=== PATIENT | female | born 1940 | race Caucasian/White ===

== ENCOUNTER 2019-02-24 18:30 | Inpatient (IN) | payer MEDICARE, BC ==
[2019-02-24] MEDS ORDERED: SODIUM CHLORIDE 0.9% 1,000 ML IV STA (19:15)
[2019-02-24] MEDS ORDERED: METOCLOPRAMIDE 5 MG/ML 2 ML VIAL IVP STA (19:15)
[2019-02-24] MEDS ORDERED: HYDROmorphone 0.5 MG/0.5 ML SYRINGE IVP STA (19:15)
[2019-02-24] MEDS ORDERED: SODIUM CHLORIDE 0.9% 500 ML 500 ML IV STA ×2 (19:15→23:32)
--- NOTE | 2019-02-24 20:25 | ED ---
Abdominal Pain HPI - General Source: patient, EMS Mode of arrival: EMS <Nash Zambrano - Last Filed: 02/24/19 20:22> <Willy Martin - Last Filed: 02/25/19 04:49> - General Chief Complaint: Abdominal Pain Stated Complaint: Abd.pain Time Seen by Provider: 02/24/19 19:09 - History of Present Illness Initial Comments: This 78-year-old white female presents with a complaint of some abdominal pain. This is primarily in the midepigastric region. It started at about 1:00. She ate some pizza at approximately 12:30 just one half our prior to onset of the abdominal pain. She then had some nausea and vomiting. She denies any fevers, chills, or diarrhea. The pain seems to radiate posteriorly. She apparently has had somewhat similar but less severe symptoms for the past several weeks. She has been told that she has a hiatal hernia and some reflux. She has had her gallbladder checked out in the past the ultrasound did not show any gallstones. She is worried about her gallbladder. She denies any other complaints or modifying factors. It does seem to be related to food when it does occur. (Nash Zambrano) - Related Data Home Medications Medication Instructions Recorded Confirmed Losartan/Hydrochlorothiazide 1 tab PO DAILY 02/24/19 02/24/19 [Hyzaar 100-25 Tablet] Omeprazole 20 mg PO DAILY 02/24/19 02/24/19 Allergies Allergy/AdvReac Type Severity Reaction Status Date / Time No Known Allergies Allergy Unverified 02/24/19 19:12 Review of Systems ROS Other: All systems not noted in ROS Statement are negative. <Nash Zambrano - Last Filed: 02/24/19 20:22> ROS Other: All systems not noted in ROS Statement are negative. <Willy Martin - Last Filed: 02/25/19 04:49> ROS Statement: Those systems with pertinent positive or pertinent negative responses have been documented in the HPI. Past Medical History - Past Family History Mother Family Medical History: CVA/TIA Additional Family Medical History / Comment(s): Macular Degeneration Father Family Medical History: Unable to Obtain <Willy Martin - Last Filed: 02/25/19 04:49> General Exam <Nash Zambrano - Last Filed: 02/24/19 20:22> - General Exam Comments Initial Comments: GENERAL: The patient is well nourished and well hydrated. VITAL SIGNS: Heart rate, blood pressure, respiratory rate reviewed as recorded in nurse's notes. EYES: Pupils are round and reactive. Extraocular movements are intact. No conjunctival / lid redness or swelling. ENT: No external evidence of injury, swelling, or ecchymosis. Airway is patent. Throat is clear. NECK: Nontender. No swelling or evidence of injury. No subcutaneous emphysema. Trachea is midline. No thyroid mass. HEART: Regular rate and rhythm. Good peripheral pulses. LUNGS/CHEST: Breath sounds clear and equal bilaterally. No rales, rhonchi, or wheezes. No ecchymosis, subcutaneous emphysema, or tenderness. ABDOMEN: Tenderness is present in the midepigastric region. The abdomen overall is soft. No palpable masses or organomegaly. No peritoneal signs. No abdominal wall swelling or ecchymosis. EXTREMITIES: No extremity tenderness. Normal muscle tone and function. No thoracolumbar tenderness. NEUROLOGIC: Sensation is grossly intact. Cranial nerve exam reveals face is symmetrical, tongue is midline, speech is clear. SKIN: No abrasions or ecchymosis is noted. No induration or masses noted. PSYCHIATRIC: Alert and oriented. Appropriate behavior and judgment. (Nash Zambrano) Course <Willy Martin - Last Filed: 02/25/19 04:49> Vital Signs 02/24/19 02/24/19 02/24/19 18:54 22:38 23:32 Temperature 98.9 F 98.3 F Pulse Rate 103 H 130 H 124 H Respiratory 18 18 18 Rate Blood Pressure 150/79 112/58 94/67 O2 Sat by Pulse 90 L 86 L 98 Oximetry - Reevaluation(s) Reevaluation #1: 02/25/19 00:27 Patient became tachycardic while in the emergency department. The lactic acid is checked and patient given sepsis bolus. Patient receiving IV antibiotics. To have repeat lactic acid. (Willy Martin) Medical Decision Making <Nash Zambrano - Last Filed: 02/24/19 20:22> - Lab Data Result diagrams: 02/24/19 20:15 02/24/19 20:15 - EKG Data -: EKG Interpreted by Mo EKG shows normal: sinus rhythm, axis (Normal), intervals (Normal), QRS complexes (Normal), ST-T waves (Normal) Rate: tachycardia (Rate 124 bpm) <Willy Martin - Last Filed: 02/25/19 04:49> - Medical Decision Making The patient was seen and examined. All diagnostics are reviewed. An IV is established and she does receive 0.5 mg of Dilaudid for pain and 10 mg of Reglan for nausea. She did present via ambulance and previously received some Zofran without relief. The EKG shows a normal sinus rhythm at a rate of 84. There is no acute ST-T wave changes identified. The CT interval is 172, QRS duration is 100, and the QTC intervals 451. (Nash Zambrano) Receive this patient has a sign out pending the results of her ultrasound. This does show acute cholecystitis. Case is discussed with Dr. Hernandez who is covering call for surgery tonight. Patient be admitted and kept nothing by mouth. Patient's labs are concerning for possible early sepsis. Patient is given fluid bolus based on ideal body weight. (Willy Martin) - Lab Data Lab Results 02/24/19 02/24/19 02/24/19 Range/Units 20:15 20:15 22:39 WBC 15.0 H (3.8-10.6) k/uL RBC 4.84 (3.80-5.40) m/uL Hgb 14.3 (11.4-16.0) gm/dL Hct 44.1 (34.0-46.0) % MCV 91.2 (80.0-100.0) fL MCH 29.5 (25.0-35.0) pg MCHC 32.4 (31.0-37.0) g/dL RDW 13.9 (11.5-15.5) % Plt Count 159 (150-450) k/uL Neutrophils % 96 % Lymphocytes % 2 % Monocytes % 1 % Eosinophils % 0 % Basophils % 0 % Neutrophils # 14.4 H (1.3-7.7) k/uL Lymphocytes # 0.3 L (1.0-4.8) k/uL Monocytes # 0.2 (0-1.0) k/uL Eosinophils # 0.0 (0-0.7) k/uL Basophils # 0.0 (0-0.2) k/uL PT 9.9 (9.0-12.0) sec INR 0.9 (<1.2) APTT 18.2 L (22.0-30.0) sec Sodium 138 (137-145) mmol/L Potassium 3.5 (3.5-5.1) mmol/L Chloride 99 (98-107) mmol/L Carbon Dioxide 29 (22-30) mmol/L Anion Gap 10 mmol/L BUN 14 (7-17) mg/dL Creatinine 0.67 (0.52-1.04) mg/dL Est GFR (CKD-EPI)AfAm >90 (>60 ml/min/1.73 sqM) Est GFR (CKD-EPI)NonAf 86 (>60 ml/min/1.73 sqM) Glucose 186 H (74-99) mg/dL Calcium 9.3 (8.4-10.2) mg/dL Total Bilirubin 2.2 H (0.2-1.3) mg/dL AST 399 H (14-36) U/L ALT 252 H (9-52) U/L Alkaline Phosphatase 97 (38-126) U/L Total Protein 6.7 (6.3-8.2) g/dL Albumin 4.4 (3.5-5.0) g/dL Disposition <Nash Zambrano - Last Filed: 02/24/19 20:22> Is patient prescribed a controlled substance at d/c from ED?: No <Willy Martin - Last Filed: 02/25/19 04:49> Clinical Impression: Abdominal pain, Nausea and vomiting, Cholecystitis Disposition: ADMITTED IP TO THIS HOSP Condition: Fair
--- NOTE | 2019-02-24 21:26 | XR ---
EXAMINATION TYPE: XR abdomen acute w cxr total 4 views DATE OF EXAM: 02/24/2019 COMPARISON: NONE HISTORY: Pain and vomiting TECHNIQUE: 2 upright and 2 supine views FINDINGS: Mildly enlarged cardiac silhouette noted. No acute pulmonary or pleural process. 1 cm calcified granu wanda noted in the left midlung zone. There is no evidence for pneumoperitoneum. The bowel gas pattern is unremarkable as there is air thro ughout nondilated small and large bowel. No sizeable air fluid levels. No acute skeletal or soft tissue findings. IMPRESSION: No acute radiographic process.
--- NOTE | 2019-02-24 21:51 | US ---
EXAMINATION TYPE: US abdomen limited DATE OF EXAM: 02/24/2019 COMPARISON: US 2012 CLINICAL HISTORY: Pain. Abdominal pain x 8 hours. Nausea and vomiting. HTN. Hyperlipidemia. EXAM MEASUREMENTS: Liver Length: 15.3 cm Gallbladder Wall: 0.30 cm CBD: 0.52 cm Right Kidney: 10.7 x 4.8 x 5.0 cm *Limited exam due to large body habitus, gas, and patient's limited ability to be positioned on her s kaya. Pancreas: obscured by gas Liver: Hyperechogenic diffusely, likely steatosis, and limited for focal lesions. Gallbladder: Multiple tiny intraluminal dependent echogenic foci with posterior shadowing seen withi n the gallbladder. The gallbladder is distended and measures 9.6 cm in length. Evidence for sonographic Goins's sign: no CBD: appears wnl Right Kidney: No hydronephrosis or masses seen. IMPRESSION: Sonographic findings positive for cholelithiasis, gallbladder distention, and borderline thickened ga llbladder wall thickness.
[2019-02-24 22:32] LABS: ALT 252 U/L (9-52); AST 399 U/L (14-36); African American GFR (CKD) >90 (>60 ml/min/1.73 sqM); Albumin 4.4 g/dL (3.5-5.0); Alkaline Phosphatase 97 U/L (38-126); Anion Gap 10 mmol/L; Basophils % (A) 0 %; Blood Urea Nitrogen 14 mg/dL (7-17); Calcium 9.3 mg/dL (8.4-10.2); Carbon Dioxide 29 mmol/L (22-30); Chloride 99 mmol/L (98-107); Eosinophils % (A) 0 %; Glucose 186 mg/dL (74-99); HCT 44.1 % (34.0-46.0); HGB 14.3 gm/dL (11.4-16.0); Lymphocytes # (A) 0.3 k/uL (1.0-4.8); Lymphocytes % (A) 2 %; MCH 29.5 pg (25.0-35.0); MCHC 32.4 g/dL (31.0-37.0); MCV 91.2 fL (80.0-100.0); Mean Platelet Volume 9.5; Monocytes # (A) 0.2 k/uL (0-1.0); Monocytes % (A) 1 %; Neutrophils # (A) 14.4 k/uL (1.3-7.7); Neutrophils % (A) 96 %; Platelet Count 159 k/uL (150-450); Potassium 3.5 mmol/L (3.5-5.1); RBC 4.84 m/uL (3.80-5.40); RDW 13.9 % (11.5-15.5); Sodium 138 mmol/L (137-145); Total Bilirubin 2.2 mg/dL (0.2-1.3); Total Protein 6.7 g/dL (6.3-8.2)
[2019-02-24 23:10] LABS: INR 0.9 (<1.2); Prothrombin Time 9.9 sec (9.0-12.0)
[2019-02-24 23:14] LABS: Partial Thromboplastin Time 18.2 sec (22.0-30.0)
[2019-02-24] MEDS ORDERED: HYDROmorphone 1 MG/ML 1 ML SYRINGE IVP PRN (23:17)
[2019-02-24] MEDS ORDERED: NALOXONE 0.4 MG/ML 1 ML VIAL IV PRN (23:17)
[2019-02-24] MEDS ORDERED: ONDANSETRON 4 MG/2 ML VIAL IVP PRN (23:17)
[2019-02-24] MEDS ORDERED: PIPERACILLIN-TAZOBACTAM 3.375 GM in SODIUM CHLORIDE 0.9% 100 ML IVPB STA (23:44)
[2019-02-25 00:01] LABS: Glucose,Whole Blood 242 mg/dL (75-99)
[2019-02-25] MEDS ORDERED: SODIUM CHLORIDE 0.9% 1,000 ML IV ONE (00:27)
[2019-02-25] MEDS: SODIUM CHLORIDE 0.9% 1,000 ML IV SCH ×4 (02:43→23:29)
[2019-02-25 07:04] LABS: Glucose,Whole Blood 203 mg/dL (75-99)
[2019-02-25] MEDS: INSULIN ASPART (NovoLOG) 100 UNIT/ML VIAL SQ SCH ×4 (07:53→20:40)
[2019-02-25] MEDS: LOSARTAN-HCTZ 50-12.5 MG 1 EACH TAB PO SCH (07:53)
[2019-02-25 08:31] LABS: Albumin 3.1 g/dL (3.5-5.0); Calcium 7.9 mg/dL (8.4-10.2); Potassium 3.4 mmol/L (3.5-5.1); Total Bilirubin 3.2 mg/dL (0.2-1.3); Total Protein 5.1 g/dL (6.3-8.2)
[2019-02-25 08:32] LABS: HCT 37.7 % (34.0-46.0); HGB 12.1 gm/dL (11.4-16.0); MCH 29.9 pg (25.0-35.0); MCV 93.5 fL (80.0-100.0); Mean Platelet Volume 9.3; Platelet Count 148 k/uL (150-450); RBC 4.03 m/uL (3.80-5.40); RDW 14.7 % (11.5-15.5)
[2019-02-25 08:39] LABS: WBC 31.5 k/uL (3.8-10.6)
[2019-02-25] MEDS ORDERED: POTASSIUM CHLORIDE ER 20 MEQ TAB.ER PO STA (08:40)
[2019-02-25] MEDS: PANTOPRAZOLE 40 MG TABLET PO SCH (08:42)
[2019-02-25] MEDS: PIPERACILLIN-TAZOBACTAM 3.375 GM in SODIUM CHLORIDE 0.9% 100 ML IVPB SCH ×3 (08:43→23:30)
[2019-02-25] MEDS: HYDROmorphone 0.5 MG/0.5 ML SYRINGE IVP PRN (10:04)
[2019-02-25 10:32] LABS: Band Neutrophils % 10 %; Lymphocytes # (M) 0.95 k/uL (1.0-4.8); Monocytes # (M) 1.26 k/uL (0-1.0); Neutrophils % (M) 83 %; Nucleated Red Blood Cells 0 /100 WBC (0-0); Total Cells Counted 100
--- NOTE | 2019-02-25 11:49 | P.CONS ---
History of Present Illness - Reason for Consult Consult date: 02/25/19 Elevated liver enzymes cholelithiasis Requesting physician: Garry Hernandez - Chief Complaint Abdominal pain - History of Present Illness 78-year-old female with a past medical history diabetes, GERD, hypertension, right leg carcinoma admitted with upper back pain midepigastric region. Patient had similar symptoms like this 5 years ago but was told she did not have galls tones. Patient developed chills yesterday as well as darker colored urine. Admission white count 15 increased to 31.5 today. Platelet 148. INR 0.9. Admission total bilirubin 2.2. AST 399. ALT 252. AP 97. Lactic acid 2.4 with hydration 1.4. Transaminases have increased today total bilirubin 3.2. AST 631. ALT 522. AP 69. No previous liver function tests to review. She has no history of hepatitis or jaundice. No alcohol consumption. No changes in medications. No recent antibiotics. She has been afebrile. Receiving intravenous Zosyn. Ultrasound abdomen multiple gallstones with gallbladder distention 9.6 cm. CBD 0.5 cm. Borderline thickened gallbladder wall thickness. Review of Systems Constitutional: Denies fever, positive chills, sweats, weight gain, or loss. HEENT: Negative for migraines, blurred vision or loss, earaches, drainage, tinnitus, oral mucosal lesions, dysphagia, or odynophagia. CARDIAC: Negative for chest pain, arrhythmias, or palpitation. RESPIRATORY: Negative for shortness of breath, hemoptysis, cough, or sputum production. GI: See HPI for pertinent findings. : Negative for hematuria, urgency, frequency, polyuria, or dysuria. GYNc: Negative vaginal discharge. MUSCULOSKELETAL: Negative for muscle aches, swelling, arthritis, and arthralgias. NEUROLOGIC: Negative for stroke or TIA. ENDOCRINE: Negative for thyroid problems. SKIN: Negative for rash or itching. PSYCHIATRIC: Negative history for depression and anxiety Past Medical History Past Medical History: Cancer, Diabetes Mellitus, GERD/Reflux, Hypertension Additional Past Medical History / Comment(s): positional vertigo, elevated liver enzymes, ocular migraine, sinus infections, cataracts bilat History of Any Multi-Drug Resistant Organisms: None Reported Additional Past Surgical History / Comment(s): lump removed R leg-spindle cell CA, R eye implant, cataract surgery Past Anesthesia/Blood Transfusion Reactions: No Reported Reaction Smoking Status: Never smoker Past Alcohol Use History: Rare Past Drug Use History: None Reported - Past Family History Mother Family Medical History: CVA/TIA Additional Family Medical History / Comment(s): Macular Degeneration Father Family Medical History: Unable to Obtain Medications and Allergies Home Medications Medication Instructions Recorded Confirmed Type Losartan/Hydrochlorothiazide 1 tab PO DAILY 02/24/19 02/24/19 History [Hyzaar 100-25 Tablet] Omeprazole 20 mg PO DAILY 02/24/19 02/24/19 History Allergies Allergy/AdvReac Type Severity Reaction Status Date / Time No Known Allergies Allergy Unverified 02/24/19 19:12 Physical Exam Vitals: Vital Signs Temp Pulse Pulse Pulse Resp BP BP 02/25/19 11:23 91 19 02/25/19 08:33 92 16 02/25/19 07:22 97.5 F L 91 19 02/25/19 05:58 92 80/54 02/25/19 05:01 104 H 73/49 02/25/19 04:12 99 77/52 02/25/19 03:07 106 H 02/25/19 02:38 02/25/19 02:35 106 H 18 02/25/19 02:13 108 H 02/25/19 02:09 109 H 111/74 02/25/19 02:02 107 H 02/25/19 01:40 106 H 02/25/19 01:23 106 H 16 74/44 02/24/19 23:32 98.3 F 124 H 18 94/67 02/24/19 22:38 130 H 18 112/58 02/24/19 18:54 98.9 F 103 H 18 150/79 BP Pulse Ox 02/25/19 11:23 02/25/19 08:33 94/62 94 L 02/25/19 07:22 86/60 94 L 02/25/19 05:58 02/25/19 05:01 02/25/19 04:12 02/25/19 03:07 73/49 02/25/19 02:38 89/62 02/25/19 02:35 89/62 94 L 02/25/19 02:13 94/63 02/25/19 02:09 02/25/19 02:02 44/36 02/25/19 01:40 93/58 07/17/19 01:23 74/44 98 02/24/19 23:32 98 02/24/19 22:38 86 L 02/24/19 18:54 90 L Intake and Output 02/24/19 02/25/19 02/25/19 22:59 06:59 14:59 Output Total 10 0 Balance -10 0 Output: Urine 10 Stool 0 Other: Voiding Method Toilet # Voids 1 Weight 89.358 kg General appearance: The patient is alert, oriented, in no acute distress. Jaundice. HET: Head is normocephalic and atraumatic. Pupils are equal and reactive. Sclerae icterus. Oropharynx is clear without lesions. Neck: Supple without lymphadenopathy. Trachea midline. Heart: S1 S2. Regular rate and rhythm. Lungs: No crackles or wheezes are heard. Abdomen: Soft, minimal tenderness midepigastrium right upper quadrant, nondistended with bowel sounds. No peritoneal signs. No palpable organomegaly or masses. Extremities: Normal skin color and turgor. No cyanosis, rash, ulceration, clubbing, or edema. Radial and pedal pulses are 2/4 bilaterally. Neurological: No focal deficits. Strength and sensation are grossly intact. Results CBC & Chem 7: 02/25/19 07:49 02/25/19 07:49 Labs: Abnormal Lab Results - Last 24 Hours (Table) 02/24/19 02/24/19 02/24/19 Range/Units 20:15 20:15 22:39 WBC 15.0 H (3.8-10.6) k/uL Plt Count (150-450) k/uL Neutrophils # 14.4 H (1.3-7.7) k/uL Neutrophils # (Manual) (1.3-7.7) k/uL Lymphocytes # 0.3 L (1.0-4.8) k/uL Lymphocytes # (Manual) (1.0-4.8) k/uL Monocytes # (Manual) (0-1.0) k/uL APTT 18.2 L (22.0-30.0) sec Potassium (3.5-5.1) mmol/L BUN (7-17) mg/dL Creatinine (0.52-1.04) mg/dL Glucose 186 H (74-99) mg/dL POC Glucose (mg/dL) (75-99) mg/dL Plasma Lactic Acid Topher (0.7-2.0) mmol/L Calcium (8.4-10.2) mg/dL Total Bilirubin 2.2 H (0.2-1.3) mg/dL AST 399 H (14-36) U/L ALT 252 H (9-52) U/L Total Protein (6.3-8.2) g/dL Albumin (3.5-5.0) g/dL 02/24/19 02/24/19 02/25/19 Range/Units 23:50 23:59 06:53 WBC (3.8-10.6) k/uL Plt Count (150-450) k/uL Neutrophils # (1.3-7.7) k/uL Neutrophils # (Manual) (1.3-7.7) k/uL Lymphocytes # (1.0-4.8) k/uL Lymphocytes # (Manual) (1.0-4.8) k/uL Monocytes # (Manual) (0-1.0) k/uL APTT (22.0-30.0) sec Potassium (3.5-5.1) mmol/L BUN (7-17) mg/dL Creatinine (0.52-1.04) mg/dL Glucose (74-99) mg/dL POC Glucose (mg/dL) 242 H 203 H (75-99) mg/dL Plasma Lactic Acid Topher 2.4 H* (0.7-2.0) mmol/L Calcium (8.4-10.2) mg/dL Total Bilirubin (0.2-1.3) mg/dL AST (14-36) U/L ALT (9-52) U/L Total Protein (6.3-8.2) g/dL Albumin (3.5-5.0) g/dL 02/25/19 02/25/19 Range/Units 07:49 07:49 WBC 31.5 H (3.8-10.6) k/uL Plt Count 148 L (150-450) k/uL Neutrophils # (1.3-7.7) k/uL Neutrophils # (Manual) 29.20 H (1.3-7.7) k/uL Lymphocytes # (1.0-4.8) k/uL Lymphocytes # (Manual) 0.95 L (1.0-4.8) k/uL Monocytes # (Manual) 1.26 H (0-1.0) k/uL APTT (22.0-30.0) sec Potassium 3.4 L (3.5-5.1) mmol/L BUN 20 H (7-17) mg/dL Creatinine 1.05 H (0.52-1.04) mg/dL Glucose 179 H (74-99) mg/dL POC Glucose (mg/dL) (75-99) mg/dL Plasma Lactic Acid Topher (0.7-2.0) mmol/L Calcium 7.9 L (8.4-10.2) mg/dL Total Bilirubin 3.2 H (0.2-1.3) mg/dL AST 631 H (14-36) U/L ALT 522 H (9-52) U/L Total Protein 5.1 L (6.3-8.2) g/dL Albumin 3.1 L (3.5-5.0) g/dL US - abdomen: report reviewed (Dr. Zheng) Assessment and Plan (1) Elevated liver enzymes Narrative/Plan: 78-year-old female presents with acute upper back abdominal pain with progressive elevation of leukocytosis transaminases and hyperbilirubinemia with underlying cholelithiasis possible choledocholithiasis. Acute ascending cholangitis cannot be excluded. Current Visit: Yes Status: Acute Code(s): R74.8 - ABNORMAL LEVELS OF OTHER S NIEVES ENZYMES SNOMED Code(s): 372291814 (2) Cholelithiasis Current Visit: Yes Status: Acute Code(s): K80.20 - CALCULUS OF GALLBLADDER W/O CHOLECYSTITIS W/O OBSTRUCTION SNOMED Code(s): 220802983 (3) Leukocytosis Current Visit: Yes Status: Acute Code(s): D72.829 - ELEVATED WHITE BLOOD CELL COUNT, UNSPECIFIED SNOMED Code(s): 151145575 (4) Abdominal pain Current Visit: Yes Status: Acute Code(s): R10.9 - UNSPECIFIED ABDOMINAL PAIN SNOMED Code(s): 47587999 Plan: 1. Considering leukocytosis and transaminases hyperbilirubinemia are increasing will proceed with diagnostic ERCP possible sphincterotomy instead of MRCP. 2. Nothing by mouth. Continue with IV hydration antibiotics and GI prophylaxis. Check hepatitis screen. The can maker has discussed the risks, benefits and alternative therapies for the above-mentioned procedure and for both sedation/analgesia as well as necessary blood product administration, if indicated, as they pertain to this patient. The patient has indicated understanding and acceptance of the risks and procedures discussed. Thank you for this kind referral and the opportunity to participate in the care of your patient. This consultation was discussed with Dr. Zheng. The impression and plan of care have been directed as dictated.
[2019-02-25 12:08] LABS: Glucose,Whole Blood 135 mg/dL (75-99)
--- NOTE | 2019-02-25 13:00 | P.CONS ---
History of Present Illness - Reason for Consult Consult date: 02/25/19 Medical management Requesting physician: Garry Hernandez - Chief Complaint Abdominal pain, acute cholecystitis, ascending cholangitis, type 2 diabetes - History of Present Illness 78-year-old mildly obese female one of Dr. 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 Her symptom becomes slightly bit severe associated with nausea and vomiting she experiences the less severe symptoms in the past but never of them that bad. At the time was seen in [facility] her liver enzyme were requested but elevated with a severely abnormal ultrasound consistent with the cholelithiasis gallbladder distended at the time with thickening of the wall. Surprisingly her white blood cell was quite bit elevated with low-grade temperature with above symptoms was diagnosed with acute cholelithiasis, cholecystitis along with ascending cholangitis. Patient was started on Zosyn, fluid resuscitation and admitted to the hospital under Dr. Hernandez service. Review of Systems CONSTITUTIONAL: Well-developed no acute respiratory distress. EYES: No icterus sclerae, no conjunctivitis. EARS, NOSE, MOUTH, THROAT, and FACE: No sore throat, lymphadenopathy, carotid bruits or deformity. RESPIRATORY: No SOB cough or wheezes. CARDIOVASCULAR: No CP, Palpitation, PND, Orthopnea, or angina. GASTROINTESTINAL: Positive abdominal pain nausea and vomiting no diarrhea slight constipation no GI bleed mild distended abdomen with worsening symptom between her shoulder blade and right upper shoulder. GENITOURINARY: Negative for Hematuria or UTI, no kidney stones. INTEGUMENT/BREAST: Negative for any muscular injury with mild osteoarthritis.. Positive edema HEMATOLOGIC/LYMPHATIC: Negative for bleed or purpura. MUSCULOSKELTAL: Negative for Myalgia or arthralgia. NEURLOGICAL: No LOC, Sz or syncope, blurred vision dizziness or abnormality.. BEHAVIORAL/PSYCH: Negative. ENDOCRINE: Negative. Past Medical History Past Medical History: Cancer, Diabetes Mellitus, GERD/Reflux, Hypertension Additional Past Medical History / Comment(s): positional vertigo, elevated liver enzymes, ocular migraine, sinus infections, cataracts bilat History of Any Multi-Drug Resistant Organisms: None Reported Additional Past Surgical History / Comment(s): lump removed R leg-spindle cell CA, R eye implant, cataract surgery Past Anesthesia/Blood Transfusion Reactions: No Reported Reaction Smoking Status: Never smoker Past Alcohol Use History: Rare Past Drug Use History: None Reported - Past Family History Mother Family Medical History: CVA/TIA Additional Family Medical History / Comment(s): Macular Degeneration Father Family Medical History: Unable to Obtain Medications and Allergies Home Medications Medication Instructions Recorded Confirmed Type Losartan/Hydrochlorothiazide 1 tab PO DAILY 02/24/19 02/24/19 History [Hyzaar 100-25 Tablet] Omeprazole 20 mg PO DAILY 02/24/19 02/24/19 History Allergies Allergy/AdvReac Type Severity Reaction Status Date / Time No Known Allergies Allergy Unverified 02/24/19 19:12 Physical Exam Vitals: Vital Signs Temp Pulse Pulse Pulse Resp BP BP 02/25/19 11:23 91 19 02/25/19 08:33 92 16 02/25/19 07:22 97.5 F L 91 19 02/25/19 05:58 92 80/54 02/25/19 05:01 104 H 73/49 02/25/19 04:12 99 77/52 02/25/19 03:07 106 H 02/25/19 02:38 02/25/19 02:35 106 H 18 02/25/19 02:13 108 H 02/25/19 02:09 109 H 111/74 02/25/19 02:02 107 H 02/25/19 01:40 106 H 02/25/19 01:23 106 H 16 74/44 02/24/19 23:32 98.3 F 124 H 18 94/67 02/24/19 22:38 130 H 18 112/58 02/24/19 18:54 98.9 F 103 H 18 150/79 BP Pulse Ox 02/25/19 11:23 02/25/19 08:33 94/62 94 L 02/25/19 07:22 86/60 94 L 02/25/19 05:58 02/25/19 05:01 02/25/19 04:12 02/25/19 03:07 73/49 02/25/19 02:38 89/62 02/25/19 02:35 89/62 94 L 02/25/19 02:13 94/63 02/25/19 02:09 02/25/19 02:02 44/36 02/25/19 01:40 93/58 02/25/19 01:23 74/44 98 02/24/19 23:32 98 02/24/19 22:38 86 L 02/24/19 18:54 90 L Intake and Output 02/24/19 02/25/19 02/25/19 22:59 06:59 14:59 Output Total 10 0 Balance -10 0 Output: Urine 10 Stool 0 Other: Voiding Method Toilet # Voids 1 Weight 89.358 kg General Appearance: Alert, cooperative, no distress, appears stated age. Mildly obese Neck HEENT: Supple, no lymphadenopathy, no thyroid enlargement, no carotid bruits. Lungs: Clear to auscultation without crackles or wheezes no rhonchi, no deformity. Chest Wall: Decrease expansion with deep inspiration no tenderness and no deformity was found on exam, no costochondral pain or discomfort. Heart: Regular rate and rhythm, S1, S2 normal, positive S3, soft systolic murmur in the apex. Back: Symmetric, no curvature, ROM normal, no CVA tenderness. Abdomen: Positive ventral hernia, soft positive bowel sounds with slight discomfort in the right upper quadrant area mid epigastric area along with mid abdominal region area with no rebound or rigidity.. Extremities: Extremities normal, atraumatic, no cyanosis positive trace edema. Pulses: 2+ and symmetric. Skin: Skin color, texture, tugor normal, no rashes or lesions. Neurologic: Alert oriented x3 cranial nerves II through XII intact, no motor deficit, no abnormal balance or gait. Results CBC & Chem 7: 02/25/19 07:49 02/25/19 07:49 Labs: Abnormal Lab Results - Last 24 Hours (Table) 02/24/19 02/24/19 02/24/19 Range/Units 20:15 20:15 22:39 WBC 15.0 H (3.8-10.6) k/uL Plt Count (150-450) k/uL Neutrophils # 14.4 H (1.3-7.7) k/uL Neutrophils # (Manual) (1.3-7.7) k/uL Lymphocytes # 0.3 L (1.0-4.8) k/uL Lymphocytes # (Manual) (1.0-4.8) k/uL Monocytes # (Manual) (0-1.0) k/uL APTT 18.2 L (22.0-30.0) sec Potassium (3.5-5.1) mmol/L BUN (7-17) mg/dL Creatinine (0.52-1.04) mg/dL Glucose 186 H (74-99) mg/dL POC Glucose (mg/dL) (75-99) mg/dL Plasma Lactic Acid Topher (0.7-2.0) mmol/L Calcium (8.4-10.2) mg/dL Total Bilirubin 2.2 H (0.2-1.3) mg/dL AST 399 H (14-36) U/L ALT 252 H (9-52) U/L Total Protein (6.3-8.2) g/dL Albumin (3.5-5.0) g/dL 02/24/19 02/24/19 02/25/19 Range/Units 23:50 23:59 06:53 WBC (3.8-10.6) k/uL Plt Count (150-450) k/uL Neutrophils # (1.3-7.7) k/uL Neutrophils # (Manual) (1.3-7.7) k/uL Lymphocytes # (1.0-4.8) k/uL Lymphocytes # (Manual) (1.0-4.8) k/uL Monocytes # (Manual) (0-1.0) k/uL APTT (22.0-30.0) sec Potassium (3.5-5.1) mmol/L BUN (7-17) mg/dL Creatinine (0.52-1.04) mg/dL Glucose (74-99) mg/dL POC Glucose (mg/dL) 242 H 203 H (75-99) mg/dL Plasma Lactic Acid Topher 2.4 H* (0.7-2.0) mmol/L Calcium (8.4-10.2) mg/dL Total Bilirubin (0.2-1.3) mg/dL AST (14-36) U/L ALT (9-52) U/L Total Protein (6.3-8.2) g/dL Albumin (3.5-5.0) g/dL 02/25/19 02/25/19 02/25/19 Range/Units 07:49 07:49 11:57 WBC 31.5 H (3.8-10.6) k/uL Plt Count 148 L (150-450) k/uL Neutrophils # (1.3-7.7) k/uL Neutrophils # (Manual) 29.20 H (1.3-7.7) k/uL Lymphocytes # (1.0-4.8) k/uL Lymphocytes # (Manual) 0.95 L (1.0-4.8) k/uL Monocytes # (Manual) 1.26 H (0-1.0) k/uL APTT (22.0-30.0) sec Potassium 3.4 L (3.5-5.1) mmol/L BUN 20 H (7-17) mg/dL Creatinine 1.05 H (0.52-1.04) mg/dL Glucose 179 H (74-99) mg/dL POC Glucose (mg/dL) 135 H (75-99) mg/dL Plasma Lactic Acid Topher (0.7-2.0) mmol/L Calcium 7.9 L (8.4-10.2) mg/dL Total Bilirubin 3.2 H (0.2-1.3) mg/dL AST 631 H (14-36) U/L ALT 522 H (9-52) U/L Total Protein 5.1 L (6.3-8.2) g/dL Albumin 3.1 L (3.5-5.0) g/dL Assessment and Plan Plan: 1 severe acute abdominal pain: Combination of acute cholecystitis with possible common duct stone along with ascending cholangitis, will be continue pain management, fluid resuscitation along with antibiotic patient might need to go for an MRCP if positive will need an ERCP in the meanwhile continue current antibiotic in the common duct is a clear in the white blood cell still elevated will be cordova to wait at least a week to 10 days before doing gallbladder surgery if the white blood cell improved very fast over the next 24 hours and patient is asymptomatic gallbladder surgery would be safe to be done sooner. 2 acute cholecystitis and cholelithiasis: With the possibility of common duct stone patient eventually need to go for surgery in the meanwhile continue pain management and fluid along with antibiotics. 3 ascending cholangitis: Continue coverage for gram-negative continue Zosyn and if needed will add Levaquin or Flagyl. 4 severe leukocytosis: Most likely from the severity of the ascending cholangitis with the possibility of septicemia, also patient might have leukemoid reaction if the white blood cell doesn't improve with antibiotic and the current management further workup for leukemia should be done. 5 diabetes type 2: Patient has not been any medication, continue Accu-Chek with sliding scales coverage and if she had previously history of fatty liver or Flanagan patient will benefit from been either on metformin or Januvia on the long term care phlebotomist. 6 hypertension: Patient was on losartan hydrochlorothiazide which can be resumed for now if the blood pressure remain elevated can use Vasotec IV or clonidine on an as-needed basis for systolic above 160. 7 acute kidney injury with stage II kidney disease: Continue hydration repeat CMP in 24 hours. 8 DVT prophylaxis: Patient can be on heparin subcutaneous but with the thrombocytopenia platelet count of 140 units thousand if it dropped down 20 pe rcentile heparin should be discontinue and should look for alternative in the meanwhile continue knee-high JUAN ANTONIO hose and Venodyne boots. 9 GI prophylaxis: Patient will be on pantoprazole IV. CODE STATUS: Full code. Dr. Hernandez thank you very much for the consult if I can be any further help to please let me know.
[2019-02-25] MEDS ORDERED: INDOMETHACIN 50MG SUPPOSITORY RECTAL ONE (14:00)
--- NOTE | 2019-02-25 14:45 | P.GSHP ---
History of Present Illness H&P Date: 02/25/19 Chief Complaint: abdominal pain CHIEF COMPLAINT: abdominal pain HISTORY OF PRESENT ILLNESS: 78 year old female who presents to the emergency room secondary to abdominal discomfort and back pain. Patient reports she has had intermittent discomfort over the last 5-8 years and thought her gallbladder may be the source. She reports having previous ultrasounds but they never showed any stones or inflammation. patient states she was eating pizza yesterday afternoon and when she was driving home she began experiencing some discomfort in the epigastric region that radiated to her back. Patient reports nausea and vomiting yesterday which has since resolved. She does report a history of elevated LFTs and states she has been diagnosed with fatty liver disease. She denies alcohol use. Patient was initially hypertensive upon arrival but then came hypotensive. She has received IV fluid resuscitation. remains mildly tachycardic. Afebrile. PAST MEDICAL HISTORY: See list. PAST SURGICAL HISTORY: See list. SOCIAL HISTORY: No illicit drug use. REVIEW OF SYSTEMS: CONSTITUTIONAL: Denies fever or chills. HEENT: Denies blurred vision, vision changes, or eye pain. Denies hemoptysis CARDIOVASCULAR: Denies chest pain or pressure. RESPIRATORY: No shortness of breath. GASTROINTESTINAL: Refer to HPI for pertinent findings HEMATOLOGIC: Denies bleeding disorders. GENITOURINARY: Denies any blood in urine. SKIN: Denies pruitis. Denies rash. PHYSICAL EXAM: VITAL SIGNS: Reviewed. GENERAL: Well-developed in no acute distress. HEENT: No sclera icterus. Extraocular movements grossly intact. Moist buccal mucosa. Head is atraumatic, normocephalic. ABDOMEN: Soft. Nondistended. Minimal tenderness with palpation up on epigastric region. Positive bowel sounds. Mid abdominal hernia present. Reducible and nontender. NEUROLOGIC: Alert and oriented. Cranial nerves II through XII grossly intact. LABORATORY DATA: White count on admission 15.0. This morning increased to 31.5. Total bilirubin 2.0 on admission. AST 399. ALT 252. Total bilirubin this morning 3.2. AST 631. ALT 522. Lactic acid 2.4. Repeat 1.4 IMAGING: Ultrasound abdomen: Multiple tiny intraluminal dependent echogenic foci with posterior shadowing seen in the gallbladder. Code bladder distended and measures 9.6 cm in length. Common bile duct 0.52 cm. Gallbladder wall 0.30 cm. Sonographic findings positive for cholelithiasis, gallbladder distention, and borderline thickened gallbladder wall thickness ASSESSMENT: 1. Abdominal discomfort with radiation to back 2. Cholelithiasis 3. Acute cholecystitis 4. Possible choledocholithiasis. 5. Possible acute ascending cholangitis 6. Transaminitis 7. Hyperbilirubinemia 8. Leukocytosis PLAN: NPO. Continue IV fluids. Continue antibiotics. Monitor WBC. Monitor LFTs. GI consulted this morning for ERCP. Lap joy recommended when medically stable Nurse practitioner note has been reviewed by physician. Signing provider agrees with the documented findings, assessment, and plan of care. Past Medical History Past Medical History: Cancer, Diabetes Mellitus, GERD/Reflux, Hypertension Additional Past Medical History / Comment(s): positional vertigo, elevated liver enzymes, ocular migraine, sinus infections, cataracts bilat History of Any Multi-Drug Resistant Organisms: None Reported Additional Past Surgical History / Comment(s): lump removed R leg-spindle cell CA, R eye implant, cataract surgery Past Anesthesia/Blood Transfusion Reactions: No Reported Reaction Smoking Status: Never smoker Past Alcohol Use History: Rare Past Drug Use History: None Reported - Past Family History Mother Family Medical History: CVA/TIA Additional Family Medical History / Comment(s): Macular Degeneration Father Family Medical History: Unable to Obtain Medications and Allergies Home Medications Medication Instructions Recorded Confirmed Type Losartan/Hydrochlorothiazide 1 tab PO DAILY 02/24/19 02/24/19 History [Hyzaar 100-25 Tablet] Omeprazole 20 mg PO DAILY 02/24/19 02/24/19 History Allergies Allergy/AdvReac Type Severity Reaction Status Date / Time No Known Allergies Allergy Unverified 02/24/19 19:12 Surgical - Exam Vital Signs Temp Pulse Resp BP Pulse Ox 98.9 F 103 H 18 150/79 90 L 02/24/19 18:54 02/24/19 18:54 02/24/19 18:54 02/24/19 18:54 02/24/19 18:54 Results - Labs 02/25/19 07:49 02/25/19 07:49 Abnormal Lab Results - Last 24 Hours (Table) 02/24/19 02/24/19 02/24/19 Range/Units 20:15 20:15 22:39 WBC 15.0 H (3.8-10.6) k/uL Plt Count (150-450) k/uL Neutrophils # 14.4 H (1.3-7.7) k/uL Neutrophils # (Manual) (1.3-7.7) k/uL Lymphocytes # 0.3 L (1.0-4.8) k/uL Lymphocytes # (Manual) (1.0-4.8) k/uL Monocytes # (Manual) (0-1.0) k/uL APTT 18.2 L (22.0-30.0) sec Potassium (3.5-5.1) mmol/L BUN (7-17) mg/dL Creatinine (0.52-1.04) mg/dL Glucose 186 H (74-99) mg/dL POC Glucose (mg/dL) (75-99) mg/dL Plasma Lactic Acid Topher (0.7-2.0) mmol/L Calcium (8.4-10.2) mg/dL Total Bilirubin 2.2 H (0.2-1.3) mg/dL AST 399 H (14-36) U/L ALT 252 H (9-52) U/L Total Protein (6.3-8.2) g/dL Albumin (3.5-5.0) g/dL 02/24/19 02/24/19 02/25/19 Range/Units 23:50 23:59 06:53 WBC (3.8-10.6) k/uL Plt Count (150-450) k/uL Neutrophils # (1.3-7.7) k/uL Neutrophils # (Manual) (1.3-7.7) k/uL Lymphocytes # (1.0-4.8) k/uL Lymphocytes # (Manual) (1.0-4.8) k/uL Monocytes # (Manual) (0-1.0) k/uL APTT (22.0-30.0) sec Potassium (3.5-5.1) mmol/L BUN (7-17) mg/dL Creatinine (0.52-1.04) mg/dL Glucose (74-99) mg/dL POC Glucose (mg/dL) 242 H 203 H (75-99) mg/dL Plasma Lactic Acid Topher 2.4 H* (0.7-2.0) mmol/L Calcium (8.4-10.2) mg/dL Total Bilirubin (0.2-1.3) mg/dL AST (14-36) U/L ALT (9-52) U/L Total Protein (6.3-8.2) g/dL Albumin (3.5-5.0) g/dL 02/25/19 02/25/19 02/25/19 Range/Units 07:49 07:49 11:57 WBC 31.5 H (3.8-10.6) k/uL Plt Count 148 L (150-450) k/uL Neutrophils # (1.3-7.7) k/uL Neutrophils # (Manual) 29.20 H (1.3-7.7) k/uL Lymphocytes # (1.0-4.8) k/uL Lymphocytes # (Manual) 0.95 L (1.0-4.8) k/uL Monocytes # (Manual) 1.26 H (0-1.0) k/uL APTT (22.0-30.0) sec Potassium 3.4 L (3.5-5.1) mmol/L BUN 20 H (7-17) mg/dL Creatinine 1.05 H (0.52-1.04) mg/dL Glucose 179 H (74-99) mg/dL POC Glucose (mg/dL) 135 H (75-99) mg/dL Plasma Lactic Acid Topher (0.7-2.0) mmol/L Calcium 7.9 L (8.4-10.2) mg/dL Total Bilirubin 3.2 H (0.2-1.3) mg/dL AST 631 H (14-36) U/L ALT 522 H (9-52) U/L Total Protein 5.1 L (6.3-8.2) g/dL Albumin 3.1 L (3.5-5.0) g/dL Diabetes panel 02/24/19 02/25/19 Range/Units 20:15 07:49 Sodium 138 140 (137-145) mmol/L Potassium 3.5 3.4 L (3.5-5.1) mmol/L Chloride 99 105 (98-107) mmol/L Carbon Dioxide 29 24 (22-30) mmol/L BUN 14 20 H (7-17) mg/dL Creatinine 0.67 1.05 H (0.52-1.04) mg/dL Glucose 186 H 179 H (74-99) mg/dL Calcium 9.3 7.9 L (8.4-10.2) mg/dL AST 399 H 631 H (14-36) U/L ALT 252 H 522 H (9-52) U/L Alkaline Phosphatase 97 69 (38-126) U/L Total Protein 6.7 5.1 L (6.3-8.2) g/dL Albumin 4.4 3.1 L (3.5-5.0) g/dL Calcium panel 02/24/19 02/25/19 Range/Units 20:15 07:49 Calcium 9.3 7.9 L (8.4-10.2) mg/dL Albumin 4.4 3.1 L (3.5-5.0) g/dL Pituitary panel 02/24/19 02/25/19 Range/Units 20:15 07:49 Sodium 138 140 (137-145) mmol/L Potassium 3.5 3.4 L (3.5-5.1) mmol/L Chloride 99 105 (98-107) mmol/L Carbon Dioxide 29 24 (22-30) mmol/L BUN 14 20 H (7-17) mg/dL Creatinine 0.67 1.05 H (0.52-1.04) mg/dL Glucose 186 H 179 H (74-99) mg/dL Calcium 9.3 7.9 L (8.4-10.2) mg/dL Adrenal panel 02/24/19 02/25/19 Range/Units 20:15 07:49 Sodium 138 140 (137-145) mmol/L Potassium 3.5 3.4 L (3.5-5.1) mmol/L Chloride 99 105 (98-107) mmol/L Carbon Dioxide 29 24 (22-30) mmol/L BUN 14 20 H (7-17) mg/dL Creatinine 0.67 1.05 H (0.52-1.04) mg/dL Glucose 186 H 179 H (74-99) mg/dL Calcium 9.3 7.9 L (8.4-10.2) mg/dL Total Bilirubin 2.2 H 3.2 H (0.2-1.3) mg/dL AST 399 H 631 H (14-36) U/L ALT 252 H 522 H (9-52) U/L Alkaline Phosphatase 97 69 (38-126) U/L Total Protein 6.7 5.1 L (6.3-8.2) g/dL Albumin 4.4 3.1 L (3.5-5.0) g/dL
[2019-02-25] MEDS ORDERED: IV FLUID CONTINUATION 1,000 ML IV ONE (14:49)
[2019-02-25] MEDS ORDERED: SUCCINYLCHOLINE CHLORIDE 100 MG/5 ML SYR IV ONE (15:08)
[2019-02-25] MEDS ORDERED: PROPOFOL 10 MG/ML 20 ML VIAL IV ONE (15:08)
[2019-02-25] MEDS ORDERED: ePHEDrine SULFATE/0.9% NACL/PF 50 MG/5 ML SYRINGE IV ONE (15:08)
[2019-02-25] MEDS ORDERED: fentaNYL (PF) 50 MCG/ML 2 ML AMP ONE (15:08)
[2019-02-25] MEDS ORDERED: LIDOCAINE 1% INJ 10MG/ML (20 ML MDV) ONE (15:08)
[2019-02-25] MEDS ORDERED: MIDAZOLAM 2 MG/2 ML VIAL ONE (15:08)
[2019-02-25] MEDS ORDERED: IOPAMIDOL-300 50ML BTL INJ ONE (15:35)
[2019-02-25] MEDS ORDERED: SODIUM CHLORIDE 0.9% 500 ML 500 ML IV ONE (16:33)
--- NOTE | 2019-02-25 16:50 | P.PCN ---
Date of Procedure: 02/25/19 Description of Procedure: Brief history: 78-year-old female with a past medical history diabetes, GERD, hypertension, right leg carcinoma admitted with upper back pain midepigastric region. Patient had similar symptoms like this 5 years ago but was told she did not have gallstones. Patient developed chills yesterday as well as darker colored urine. Admission white count 15 increased to 31.5 today. Platelet 148. INR 0.9. Admission total bilirubin 2.2. AST 399. ALT 252. AP 97. Lactic acid 2.4 with hydration 1.4. Transaminases have increased today total bilirubin 3.2. AST 631. ALT 522. AP 69. No previous liver function tests to review. She has no history of hepatitis or jaundice. No alcohol consumption. No changes in medications. No recent antibiotics. She has been afebrile. Receiving intravenous Zosyn. Ultrasound abdomen multiple gallstones with gallbladder distention 9.6 cm. CBD 0.5 cm. Borderline thickened gallbladder wall thickness. Procedure performed: ERCP with cholangiogram, sphincterotomy and balloon sweep Preoperative diagnoses: Cholangitis, elevated liver enzymes, elevated bilirubin IV sedation per anesthesia Estimated blood loss: Minimal. Procedure: After informed consent was obtained from the patient and after the risks benefits and complications including bleeding perforation and pancreatitis explained in detail the patient was brought into the endoscopy unit. The patient was placed in prone position and IV conscious sedation was administered by anesthesia under continuous monitoring. The Olympus side-viewing duodenoscope was then inserted into the mouth and esophagus intubated without any difficulty. The scope was gradually advanced into the stomach and duodenum. The major papilla was identified without any difficulty, with pus noted at the orifice. The major papilla was successfully cannulated with a sphincterotome. A wire was then passed through the common bile duct and into the common hepatic duct. Dye was then injected with mild diffuse dilation of the CBD without any distinct filling defects. The sphincterotome was then used to make an 8 mm sphincterotomy. Sphincterotome was then exchanged over the wire for a balloon which was passed over the wire into the common bile duct through the common hepatic duct into the bifurcation. The balloon was inflated serially to 8 mm and 11.5 mm respectively with multiple sweeps of the common bile duct, which was productive for more pus, good bile flow and some biliary debris. The patient tolerated the procedure well. The pancreatic duct was not cannulated or injected. 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 Procedure ERCP with cholangiogram, sphincterotomy and balloon sweep Recommendations: The findings of this examination were discussed with the patient as well as her family. Okay to resume full liquid diet. Nothing by mouth after midnight for possible post cystectomy. Continue antibiotic therapy. Continue to monitor labs. Monitor for signs or symptoms of pancreatitis.
[2019-02-25 17:29] LABS: Glucose,Whole Blood 121 mg/dL (75-99)
[2019-02-25 19:09] LABS: Hepatitis A Antibody IgM Non-Reactive (Non-Reactive); Hepatitis B Core IgM Non-Reactive (Non-Reactive)
[2019-02-25 20:24] LABS: Glucose,Whole Blood 157 mg/dL (75-99)
[2019-02-25] MEDS: HEPARIN SODIUM,PORCINE 5,000 UNIT/ML 1 ML VIAL SQ SCH (20:27)
[2019-02-26] MEDS: HYDROmorphone 0.5 MG/0.5 ML SYRINGE IVP PRN (03:42)
[2019-02-26 06:56] LABS: Glucose,Whole Blood 145 mg/dL (75-99)
[2019-02-26 07:12] LABS: Basophils % (A) 0 %; Eosinophils # (A) 0.1 k/uL (0-0.7); Eosinophils % (A) 1 %; HCT 39.5 % (34.0-46.0); HGB 12.2 gm/dL (11.4-16.0); Hypochromasia Slight; Lymphocytes # (A) 0.5 k/uL (1.0-4.8); Lymphocytes % (A) 4 %; MCHC 30.8 g/dL (31.0-37.0); MCV 94.3 fL (80.0-100.0); Mean Platelet Volume 9.6; Monocytes # (A) 0.5 k/uL (0-1.0); Monocytes % (A) 4 %; Neutrophils # (A) 12.1 k/uL (1.3-7.7); Neutrophils % (A) 90 %; Platelet Count 110 k/uL (150-450); RBC 4.19 m/uL (3.80-5.40); RDW 14.5 % (11.5-15.5); WBC 13.4 k/uL (3.8-10.6)
--- NOTE | 2019-02-26 07:15 | FL ---
EXAMINATION TYPE: FL ERCP pancreatic duct only DATE OF EXAM: 02/25/2019 CLINICAL HISTORY: Acute cholecystitis. TECHNIQUE: Fluoroscopy. COMPARISON: None. FINDINGS: Fluoroscopic guidance was provided during ERCP procedure performed by Dr. Zheng. A tota l of 38 seconds of fluoroscopic time was utilized during the procedure and 3 spot images are acquired . Images acquired show CBD access with suspected dilatation and stone formation, for further details please refer to procedure note as I was not present nor performed procedure IMPRESSION: As Above.
[2019-02-26 07:28] LABS: Albumin 3.2 g/dL (3.5-5.0); Calcium 7.4 mg/dL (8.4-10.2); Potassium 3.8 mmol/L (3.5-5.1); Total Bilirubin 3.3 mg/dL (0.2-1.3); Total Protein 5.3 g/dL (6.3-8.2)
[2019-02-26] MEDS: SODIUM CHLORIDE 0.9% 1,000 ML IV SCH ×2 (07:51→16:05)
[2019-02-26] MEDS: INSULIN ASPART (NovoLOG) 100 UNIT/ML VIAL SQ SCH ×4 (07:53→22:09)
[2019-02-26] MEDS: PANTOPRAZOLE 40 MG TABLET PO SCH (08:07)
[2019-02-26] MEDS: LOSARTAN-HCTZ 50-12.5 MG 1 EACH TAB PO SCH (08:07)
[2019-02-26] MEDS: PIPERACILLIN-TAZOBACTAM 3.375 GM in SODIUM CHLORIDE 0.9% 100 ML IVPB SCH ×2 (08:11→15:54)
[2019-02-26] MEDS: HEPARIN SODIUM,PORCINE 5,000 UNIT/ML 1 ML VIAL SQ SCH ×2 (08:11→22:11)
--- NOTE | 2019-02-26 10:27 | P.PN ---
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 Scheduled for laparoscopic cholecystectomy today. Afebrile. Transaminases improving AST 326. ALT 49. AP 95. Total bilirubin relatively unchanged from yesterday presently 3.3. Hepatitis screen nonreactive. Objective - Vital Signs Vital signs: Vital Signs Temp 98.8 F 02/26/19 07:00 Pulse 94 02/26/19 08:04 Resp 18 02/26/19 07:00 BP 121/48 02/26/19 07:00 Pulse Ox 92 L 02/26/19 07:00 Intake & Output 02/25/19 02/26/19 02/26/19 18:59 06:59 18:59 Intake Total 1100 1225 Output Total 0 Balance 1100 1225 Intake: IV 1100 Intake, IV Titration 1225 Amount Piperacillin-Tazobactam 3 100 .375 gm In Sodium Chloride 0.9% 100 ml @ 25 mls/hr IVPB Q8HR [facility] A Rx# :[id number] Sodium Chloride 0.9% 1, 1125 000 ml @ 125 mls/hr IV . Q8H MARCO A Rx#:[id number] Output: Stool 0 Other: Voiding Method Toilet # Voids 2 - Exam General appearance: The patient is alert, oriented, in no acute distress. Jaundice. HET: Head is normocephalic and atraumatic. Pupils are equal and reactive. O ropharynx is clear without lesions. Sclerae icterus. Neck: Supple without lymphadenopathy. Trachea midline. Heart: S1 S2. Regular rate and rhythm. Lungs: No crackles or wheezes are heard. Abdomen: Soft, nontender, nondistended with bowel sounds. No peritoneal signs. No palpable organomegaly or masses. Extremities: Normal skin color and turgor. No cyanosis, rash, ulceration, clubbing, or edema. Radial and pedal pulses are 2/4 bilaterally. Neurological: No focal deficits. Strength and sensation are grossly intact. - Labs CBC & Chem 7: 02/26/19 06:34 02/26/19 06:34 Labs: Abnormal Lab Results - Last 24 Hours (Table) 02/25/19 02/25/19 02/25/19 Range/Units 07:49 11:57 17:26 WBC (3.8-10.6) k/uL MCHC (31.0-37.0) g/dL Plt Count (150-450) k/uL Neutrophils # (1.3-7.7) k/uL Neutrophils # (Manual) 29.20 H (1.3-7.7) k/uL Lymphocytes # (1.0-4.8) k/uL Lymphocytes # (Manual) 0.95 L (1.0-4.8) k/uL Monocytes # (Manual) 1.26 H (0-1.0) k/uL Chloride (98-107) mmol/L Glucose (74-99) mg/dL POC Glucose (mg/dL) 135 H 121 H (75-99) mg/dL Calcium (8.4-10.2) mg/dL Total Bilirubin (0.2-1.3) mg/dL AST (14-36) U/L ALT (9-52) U/L Total Protein (6.3-8.2) g/dL Albumin (3.5-5.0) g/dL 02/25/19 02/26/19 02/26/19 Range/Units 20:22 06:34 06:34 WBC 13.4 H (3.8-10.6) k/uL MCHC 30.8 L (31.0-37.0) g/dL Plt Count 110 L (150-450) k/uL Neutrophils # 12.1 H (1.3-7.7) k/uL Neutrophils # (Manual) (1.3-7.7) k/uL Lymphocytes # 0.5 L (1.0-4.8) k/uL Lymphocytes # (Manual) (1.0-4.8) k/uL Monocytes # (Manual) (0-1.0) k/uL Chloride 109 H (98-107) mmol/L Glucose 140 H (74-99) mg/dL POC Glucose (mg/dL) 157 H (75-99) mg/dL Calcium 7.4 L (8.4-10.2) mg/dL Total Bilirubin 3.3 H (0.2-1.3) mg/dL AST 326 H (14-36) U/L ALT 489 H (9-52) U/L Total Protein 5.3 L (6.3-8.2) g/dL Albumin 3.2 L (3.5-5.0) g/dL 02/26/ Range/Units 06:42 WBC (3.8-10.6) k/uL MCHC (31.0-37.0) g/dL Plt Count (150-450) k/uL Neutrophils # (1.3-7.7) k/uL Neutrophils # (Manual) (1.3-7.7) k/uL Lymphocytes # (1.0-4.8) k/uL Lymphocytes # (Manual) (1.0-4.8) k/uL Monocytes # (Manual) (0-1.0) k/uL Chloride (98-107) mmol/L Glucose (74-99) mg/dL POC Glucose (mg/dL) 145 H (75-99) mg/dL Calcium (8.4-10.2) mg/dL Total Bilirubin (0.2-1.3) mg/dL AST (14-36) U/L ALT (9-52) U/L Total Protein (6.3-8.2) g/dL Albumin (3.5-5.0) g/dL Assessment and Plan (1) Elevated liver enzymes Narrative/Plan: Cholangitis. Status post ERCP sphincterotomy balloon sweep possible stenotic pa pilloma no obvious filling defects Current Visit: Yes Status: Acute Code(s): R74.8 - ABNORMAL LEVELS OF OTHER SERUM ENZYMES SNOMED Code(s): 735506264 (2) Cholelithiasis Current Visit: Yes Status: Acute Code(s): K80.20 - CALCULUS OF GALLBLADDER W/O CHOLECYSTITIS W/O OBSTRUCTION SNOMED Code(s): 746507940 (3) Leukocytosis Current Visit: Yes Status: Acute Code(s): D72.829 - ELEVATED WHITE BLOOD CELL COUNT, UNSPECIFIED SNOMED Code(s): 177128322 (4) Abdominal pain Current Visit: Yes Status: Acute Code(s): R10.9 - UNSPECIFIED ABDOMINAL PAIN SNOMED Code(s): 59539784 Plan: 1. OR per general surgery. Daily monitoring of CBC CMP. Assessment and plan a care discussed with Dr. Zheng
[2019-02-26] MEDS ORDERED: ONDANSETRON 4 MG/2 ML VIAL IVP STA (11:00)
[2019-02-26 11:28] LABS: Glucose,Whole Blood 121 mg/dL (75-99)
[2019-02-26] MEDS ORDERED: SCOPOLAMINE 1.5MG/72HR PATCH TRANSDERM ONE (11:56)
[2019-02-26 12:01] LABS: Glucose,Whole Blood 148 mg/dL (75-99)
--- NOTE | 2019-02-26 12:05 | P.PN ---
Progress Note - Text Progress Note Date: 02/26/19 The patient underwent ERCP yesterday. She will undergo laparoscopic cholecystectomy today.
[2019-02-26] MEDS ORDERED: ONDANSETRON 4 MG/2 ML VIAL IVP PRN (12:11)
[2019-02-26] MEDS ORDERED: LIDOCAINE 1% 20 ML VIAL (10MG/ML) FOR IV START INTRADERMA PRN (12:11)
[2019-02-26] MEDS ORDERED: HYDROmorphone 0.5 MG/0.5 ML SYRINGE IVP PRN (12:11)
[2019-02-26] MEDS ORDERED: LACTATED RINGERS 1,000 ML IV SCH (12:15)
[2019-02-26] MEDS ORDERED: LIDOCAINE 1% INJ 10MG/ML (20 ML MDV) ONE (12:25)
[2019-02-26] MEDS ORDERED: PROPOFOL 10 MG/ML 20 ML VIAL IV ONE (12:25)
[2019-02-26] MEDS ORDERED: NEOSTIGMINE 1 MG/ML 10 ML VIAL ONE (12:25)
[2019-02-26] MEDS ORDERED: MIDAZOLAM 2 MG/2 ML VIAL ONE (12:25)
[2019-02-26] MEDS ORDERED: fentaNYL (PF) 50 MCG/ML 2 ML AMP ONE (12:25)
[2019-02-26] MEDS ORDERED: KETOROLAC 30 MG/ML 1 ML VIAL ONE (12:25)
[2019-02-26] MEDS ORDERED: ROCURONIUM BROMIDE 10 MG/ML 10 ML VIAL IV ONE (12:25)
[2019-02-26] MEDS ORDERED: GLYCOPYRROLATE 0.2 MG/ML 2 ML VIAL ONE (12:25)
[2019-02-26] MEDS ORDERED: SUCCINYLCHOLINE CHLORIDE 100 MG/5 ML SYR IV ONE (12:25)
[2019-02-26] MEDS ORDERED: BUPIVACAINE (PF) 0.5% 30 ML VIAL SQ ONE (12:48)
--- NOTE | 2019-02-26 13:17 | P.OP ---
Date of Procedure: 02/26/19 Preoperative Diagnosis: Cholecystitis Cholelithiasis Cholecystitis Postoperative Diagnosis: Cholecystitis Cholelithiasis Procedure(s) Performed: Laparoscopic cholecystectomy Anesthesia: JASON Surgeon: Garry Hernandez Estimated Blood Loss (ml): 25 Pathology: other (Gallbladder) Condition: stable Disposition: PACU Description of Procedure: The patient was placed on the operating table. The patient received a general endotracheal tube anesthesia. The patients abdomen was prepped and draped in the usual sterile fashion. Through an infraumbilical stab incision, the fascia of the anterior abdominal wall was grasped with a pair of Kochers and then the Veress needle was placed in the peritoneal cavity. Position of the Veress needle was confirmed with positive drop test. The abdomen was then insufflated. After adequate insufflation, the 10 mm trocar was placed in the peritoneal cavity. Following this the laparoscope was placed in the peritoneal cavity. The patient was placed in the head-up, right side up position and then a 5 mm trocar was placed in the right lateral and right subcostal position under direct visualization. A 8 mm trocar was placed in the epigastric position. The gallbladder was grossly inflamed. It appeared to be edematous. The gallbladder was tense. The gallbladder was aspirated with the suction catheter. The gallbladder was grasped in the fundus and infundibulum. Traction on the gallbladder was placed in the lateral and the cephalad positions. The triangle of Calot was visualized.. The cystic duct was bluntly dissected until the union of the cystic duct and common bile duct was seen. A critical view of safety was achieved. The cystic duct was then ligated with 2-0 Ethibond suture. The suture was tied of the timeout device. The duct was then divided using Harmonic scissors. p. The cystic artery divided and sealed with the Harmonic scissors. The gallbladder was then removed from the liver bed using Harmonic scissors. The gallbladder was then extracted through the epigastric port site. Operative field was checked for any bleeding spots and Harmonic scissors was used to coagulate the liver bed. The abdomen was irrigated. The trocars were removed. The skin was closed using interrupted 3-0 Vicryl suture. Dermabond dressing were applied. The patient tolerated the procedure well.
--- NOTE | 2019-02-26 13:21 | P.PN ---
Subjective Progress Note Date: 02/26/19 78-year-old mildly obese female one of Dr. 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 Her symptom becomes slightly bit severe associated with nausea and vomiting she experiences the less severe symptoms in the past but never of them that bad. At the time was seen in [facility] her liver enzyme were requested but elevated with a severely abnormal ultrasound consistent with the cholelithiasis gallbladder distended at the time with thickening of the wall. Surprisingly her white blood cell was quite bit elevated with low-grade temperature with above symptoms was diagnosed with acute cholelithiasis, cholecystitis along with ascending cholangitis. Patient was started on Zosyn, fluid resuscitation and admitted to the hospital under Dr. Hernandez service. 02/25: Yesterday, patient underwent ERCP with cholangiogram, sphincterotomy and balloon sweep with Dr. Zheng. Repeat lab work, WBC 13.4, creatinine 0.78. Total bilirubin 3.3, AST 326, ALT 489, alkaline phosphatase 95. Patient has been taken to the OR by Dr. Hernandez for cholecystectomy. Objective - Vital Signs Vital signs: Vital Signs Temp 98.1 F 02/26/19 11:31 Pulse 96 02/26/19 11:31 Resp 16 02/26/19 11:31 BP 144/88 02/26/19 11:31 Pulse Ox 96 02/26/19 11:31 Intake & Output 02/25/19 02/26/19 02/26/19 18:59 06:59 18:59 Intake Total 1100 1225 200 Output Total 0 Balance 1100 1225 200 Intake: IV 1100 200 Intake, IV Titration 1225 Amount Piperacillin-Tazobactam 3 100 .375 gm In Sodium Chloride 0.9% 100 ml @ 25 mls/hr IVPB Q8HR [facility]CO A Rx# :[id number] Sodium Chloride 0.9% 1, 1125 000 ml @ 125 mls/hr IV . Q8H MARCO A Rx#:[id number] Output: Stool 0 Other: Voiding Method Toilet # Voids 2 - Exam Review of Systems CONSTITUTIONAL: Well-developed no acute respiratory distress. EYES: No icterus sclerae, no conjunctivitis. EARS, NOSE, MOUTH, THROAT, and FACE: No sore throat, lymphadenopathy, carotid bruits or deformity. RESPIRATORY: No SOB cough or wheezes. CARDIOVASCULAR: No CP, Palpitation, PND, Orthopnea, or angina. GASTROINTESTINAL: Positive abdominal pain nausea and vomiting no diarrhea slight constipation no GI bleed mild distended abdomen with worsening symptom between her shoulder blade and right upper shoulder. GENITOURINARY: Negative for Hematuria or UTI, no kidney stones. INTEGUMENT/BREAST: Negative for any muscular injury with mild osteoarthritis.. Positive edema HEMATOLOGIC/LYMPHATIC: Negative for bleed or purpura. MUSCULOSKELTAL: Negative for Myalgia or arthralgia. NEURLOGICAL: No LOC, Sz or syncope, blurred vision dizziness or abnormality.. BEHAVIORAL/PSYCH: Negative. ENDOCRINE: Negative. General Appearance: Alert, cooperative, no distress, appears stated age. Mildly obese Neck HEENT: Supple, no lymphadenopathy, no thyroid enlargement, no carotid bruits. Lungs: Clear to auscultation without crackles or wheezes no rhonchi, no deformity. Chest Wall: Decrease expansion with deep inspiration no tenderness and no deformity was found on exam, no costochondral pain or discomfort. Heart: Regular rate and rhythm, S1, S2 normal, positive S3, soft systolic murmur in the apex. Back: Symmetric, no curvature, ROM normal, no CVA tenderness. Abdomen: Positive ventral hernia, soft positive bowel sounds with slight discomfort in the right upper quadrant area mid epigastric area along with mid abdominal region area with no rebound or rigidity.. Extremities: Extremities normal, atraumatic, no cyanosis positive trace edema. Pulses: 2+ and symmetric. Skin: Skin color, texture, tugor normal, no rashes or lesions. Neurologic: Alert oriented x3 cranial nerves II through XII intact, no motor deficit, no abnormal balance or gait. - Labs CBC & Chem 7: 02/26/19 06:34 02/26/19 06:34 Labs: Abnormal Lab Results - Last 24 Hours (Table) 02/25/19 02/25/19 02/26/19 Range/Units 17:26 20:22 06:34 WBC 13.4 H (3.8-10.6) k/uL MCHC 30.8 L (31.0-37.0) g/dL Plt Count 110 L (150-450) k/uL Neutrophils # 12.1 H (1.3-7.7) k/uL Lymphocytes # 0.5 L (1.0-4.8) k/uL Chloride (98-107) mmol/L Glucose (74-99) mg/dL POC Glucose (mg/dL) 121 H 157 H (75-99) mg/dL Calcium (8.4-10.2) mg/dL Total Bilirubin (0.2-1.3) mg/dL AST (14-36) U/L ALT (9-52) U/L Total Protein (6.3-8.2) g/dL Albumin (3.5-5.0) g/dL 02/26/19 02/26/19 02/26/19 Range/Units 06:34 06:42 11:16 WBC (3.8-10.6) k/uL MCHC (31.0-37.0) g/dL Plt Count (150-450) k/uL Neutrophils # (1.3-7.7) k/uL Lymphocytes # (1.0-4.8) k/uL Chloride 109 H (98-107) mmol/L Glucose 140 H (74-99) mg/dL POC Glucose (mg/dL) 145 H 121 H (75-99) mg/dL Calcium 7.4 L (8.4-10.2) mg/dL Total Bilirubin 3.3 H (0.2-1.3) mg/dL AST 326 H (14-36) U/L ALT 489 H (9-52) U/L Total Protein 5.3 L (6.3-8.2) g/dL Albumin 3.2 L (3.5-5.0) g/dL 02/26/19 Range/Units 11:53 WBC (3.8-10.6) k/uL MCHC (31.0-37.0) g/dL Plt Count (150-450) k/uL Neutrophils # (1.3-7.7) k/uL Lymphocytes # (1.0-4.8) k/uL Chloride (98-107) mmol/L Glucose (74-99) mg/dL POC Glucose (mg/dL) 148 H (75-99) mg/dL Calcium (8.4-10.2) mg/dL Total Bilirubin (0.2-1.3) mg/dL AST (14-36) U/L ALT (9-52) U/L Total Protein (6.3-8.2) g/dL Albumin (3.5-5.0) g/dL Assessment and Plan Plan: 1. Abdominal pain secondary to cholecystitis and common bile duct stone with ascending cholangitis, SIRS with lactic acidosis. Patient is status post ERCP, gone for cholecystectomy today. Continue Reglan and Zosyn as needed. 2. Severe leukocytosis secondary to ascending cholangitis. 3. Hypertension, presented with hypotension secondary to SIRS with lactic acidosis. 4. History of spindle cell cancer, stable. 5. Acute kidney injury. Continue IV fluids, avoid nephrotoxic agents, recheck electrolytes and kidney function. 6. Hypokalemia, replaced. 7. GI prophylaxis. Continue Protonix. 8. DVT prophylaxis. Heparin subcu 9. Diabetes mellitus type 2, diet controlled.. Discharge plan: Return home Impression and plan of care have been directed as dictated by the signing physician. Yumiko Alcantara nurse practitioner acting as scribe for signing physician.
--- NOTE | 2019-02-26 14:18 | CDI ---
Documentation Clarification Form Date: 02/26/2019 2:02:24 PM From: Latrice SongTARSHA, CCDS Admit Date: 02/25/2019 12:58:00 PM Patient Name: Stephanie Alvarez Visit Number: [id number] Discharge Date: ATTENTION: The Clinical Documentation Specialists (CDI) and [facility] Coding Staff appreciate your assistance in clarifying documentation. Please respond to the clarification below the line at the bottom and electronically sign. The CDI & [facility] Coding staff will review the response and follow-up if needed. Please note: Queries are made part of the Legal Health Record. If you have any questions, please contact the author of this message via ITS. Dr. Garry Hernandez: Per the ED note: "Patient's labs are concerning for possible early sepsis." Per the medical management consult: "severe leukocytosis: Most likely from the severity of the ascending cholangitis with the possibility of septicemia, also patient might have leukemoid reaction if the white blood cell doesn't improve with antibiotic and the current management further workup for leukemia should be done." History/Risk Factors: Hypertension, DM II, CKD II, Fatty liver. Clinical Indicators: Presented with epigastric abdominal pain, nausea & vomiting. Hypertensive on admission, became hypotensive & resuscitated with IV fluids. Diagnosed with acute cholecystitis, cholelithiasis & ascending cholangitis. VS: T 98.9, P 103^ - 130^ - 124^; R 18, BP 150/79^ - 112/58^ - 94/67^; PO 90 ra - 86 ra - 98 3Lnc LAB: WBC 15.0^, Neut 14.4^, APTT 18.2*, Gluc 186, Lactic Acid 2.4^^, T Bili 2.2^, AST 399^, ALT 252^. 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 Lap Stefany: Cholecystitis nos, Cholelithiasis In your professional opinion, please clarify if these findings signify one of the following conditions, whether the condition is POA, and cause, if known: Sepsis ruled out Sepsis ruled in o Severe Sepsis o Septic Shock Other, please specify Unable to determine Present on Admission o Yes No Identify the (suspected) organism Link or clarify if there is associated (due to/with): Organ failure and/or Shock (Last Revision: November 2017) JULIANAD
[2019-02-26 16:30] LABS: Glucose,Whole Blood 127 mg/dL (75-99)
[2019-02-26 22:19] LABS: Glucose,Whole Blood 125 mg/dL (75-99)
[2019-02-27] MEDS: PIPERACILLIN-TAZOBACTAM 3.375 GM in SODIUM CHLORIDE 0.9% 100 ML IVPB SCH ×2 (00:08→07:27)
[2019-02-27] MEDS: KETOROLAC 30 MG/ML 1 ML VIAL IVP SCH ×3 (00:08→11:54)
[2019-02-27] MEDS: SODIUM CHLORIDE 0.9% 1,000 ML IV SCH ×2 (00:11→11:58)
[2019-02-27 06:55] LABS: Glucose,Whole Blood 144 mg/dL (75-99)
[2019-02-27] MEDS: INSULIN ASPART (NovoLOG) 100 UNIT/ML VIAL SQ SCH ×2 (07:08→13:03)
[2019-02-27] MEDS: LOSARTAN-HCTZ 50-12.5 MG 1 EACH TAB PO SCH (07:25)
[2019-02-27] MEDS: PANTOPRAZOLE 40 MG TABLET PO SCH (07:26)
[2019-02-27] MEDS: HEPARIN SODIUM,PORCINE 5,000 UNIT/ML 1 ML VIAL SQ SCH (07:26)
[2019-02-27 09:08] LABS: Basophils % (A) 0 %; Eosinophils % (A) 0 %; HCT 38.1 % (34.0-46.0); HGB 11.9 gm/dL (11.4-16.0); Hypochromasia Moderate; Lymphocytes # (A) 0.5 k/uL (1.0-4.8); Lymphocytes % (A) 5 %; MCH 29.6 pg (25.0-35.0); MCHC 31.2 g/dL (31.0-37.0); MCV 94.9 fL (80.0-100.0); Mean Platelet Volume 9.2; Monocytes # (A) 0.4 k/uL (0-1.0); Monocytes % (A) 4 %; Neutrophils # (A) 10.7 k/uL (1.3-7.7); Neutrophils % (A) 91 %; Platelet Count 102 k/uL (150-450); RBC 4.01 m/uL (3.80-5.40); RDW 14.5 % (11.5-15.5); WBC 11.9 k/uL (3.8-10.6)
[2019-02-27 09:41] LABS: ALT 357 U/L (9-52); AST 149 U/L (14-36); African American GFR (CKD) >90 (>60 ml/min/1.73 sqM); Alkaline Phosphatase 115 U/L (38-126); Anion Gap 7 mmol/L; Blood Urea Nitrogen 16 mg/dL (7-17); Calcium 7.5 mg/dL (8.4-10.2); Carbon Dioxide 22 mmol/L (22-30); Chloride 109 mmol/L (98-107); Glucose 166 mg/dL (74-99); Potassium 3.9 mmol/L (3.5-5.1); Sodium 138 mmol/L (137-145); Total Bilirubin 2.3 mg/dL (0.2-1.3); Total Protein 5.2 g/dL (6.3-8.2)
--- NOTE | 2019-02-27 11:22 | XR ---
2 view abdomen HISTORY: Obstruction, cough, postop 2 views of the abdomen on 3 images Lung bases show some probable subsegmental atelectatic change, possible small effusion on the right. Surgical clips are present in the right upper quadrant. No evident bowel obstruction or pneumoperiton eum. Vascular calcification suspected within the pelvis. Degenerative disc changes in the visualized spine. IMPRESSION: Nonobstructive bowel gas pattern. Possible right lower lobe atelectasis and small effusio n.
[2019-02-27] MEDS ORDERED: ACETAMINOPHEN TAB 325 MG TAB PO PRN (11:45)
[2019-02-27 12:01] LABS: Glucose,Whole Blood 138 mg/dL (75-99)
--- NOTE | 2019-02-27 12:21 | XR ---
EXAMINATION TYPE: XR chest 2V DATE OF EXAM: 02/27/2019 COMPARISON: Chest x-ray 02/24/2019, 09/08/2011 HISTORY: Cough TECHNIQUE: Frontal and lateral views of the chest are obtained. FINDINGS: There is patchy basilar density at the right lung base, there is fluffy the right costophr enic angle. Patient is rotated. The cardiac silhouette size is within normal limits. Evidence of old granulomatous disease is again noted. The osseous structures are intact. IMPRESSION: Probable basilar atelectasis and possible associated sympathetic effusion.
--- NOTE | 2019-02-27 14:08 | P.DS ---
Providers Date of admission: 02/25/19 12:58 Expected date of discharge: 02/27/19 Attending physician: Garry Hernandez Consults: 02/24/19 23:18 Consult Physician Routine Consulting Provider: Deng Peres Consult Reason/Comments: medical management Do you want consulting provider notified?: Yes 02/25/19 10:46 Consult Physician Routine Consulting Provider: Murphy Zheng Consult Reason/Comments: ERCP Do you want consulting provider notified?: Yes Primary care physician: [facility] Course: 78 year old female who presents to the emergency room secondary to abdominal discomfort and back pain. Patient reports she has had intermittent discomfort over the last 5-8 years and thought her gallbladder may be the source. She reports having previous ultrasounds but they never showed any stones or inflammation. patient states she was eating pizza when she was driving home she began experiencing some discomfort in the epigastric region that radiated to her back. Patient underwent ERCP by GI services. Patient also underwent laparoscopic cholecystectomy during ovulation. LFTs are improving. She is stable for discharge home today per Dr. Hernandez. Please see EMR for further hospital course details. Discharge diagnosis 1. Abdominal discomfort with radiation to back 2. Cholelithiasis 3. Acute cholecystitis 4. Possible choledocholithiasis. 5. Possible acute ascending cholangitis 6. Transaminitis 7. Hyperbilirubinemia 8. Sepsis, POA, resolved Nurse practitioner note has been reviewed by physician. Signing provider agrees with the documented findings, assessment, and plan of care. Patient Condition at Discharge: Stable Plan - Discharge Summary New Discharge Prescriptions: New Acetaminophen [Tylenol] 650 mg PO Q4H PRN #60 tab PRN Reason: Pain Levofloxacin [Levaquin] 500 mg PO DAILY #7 tab No Action Losartan/Hydrochlorothiazide [Hyzaar 100-25 Tablet] 1 tab PO DAILY Omeprazole 20 mg PO DAILY Discharge Medication List Losartan/Hydrochlorothiazide [Hyzaar 100-25 Tablet] 1 tab PO DAILY 02/24/19 [History] Omeprazole 20 mg PO DAILY 02/24/19 [History] Acetaminophen [Tylenol] 650 mg PO Q4H PRN #60 tab 02/27/19 [Rx] Levofloxacin [Levaquin] 500 mg PO DAILY #7 tab 02/27/19 [Rx] Follow up Appointment(s)/Referral(s): [facility] [NON-STAFF] - As Needed (glucometer and supplies) Akshat Shabazz MD [Primary Care Provider] - 1 Week Garry Hernandez MD [STAFF PHYSICIAN] - 1 Week Activity/Diet/Wound Care/Special Instructions: No lifting over 10 pounds You may shower. No soaking or tub baths Very light activity until you are reevaluated at your follow up appointment with your surgeon
[2019-02-27 14:12] VITALS: BP 116/89; PULSE 89; RESP 16; TEMP 98.6
--- NOTE | 2019-02-27 14:46 | P.PN ---
Subjective Progress Note Date: 02/27/19 Principal diagnosis: Cholelithiasis elevated liver enzymes cholangitis Status post lap joy and ERCP. TB improved 2.3. Afebrile. Feels well. Objective - Vital Signs Vital signs: Vital Signs Temp 98.6 F 02/27/19 14:11 Pulse 89 02/27/19 14:11 Resp 16 02/27/19 14:11 BP 116/89 02/27/19 14:11 Pulse Ox 94 L 02/27/19 14:11 Intake & Output 02/26/19 02/27/19 02/27/19 18:59 06:59 18:59 Intake Total 900 1500 300 Output Total 15 0 Balance 885 1500 300 Intake: IV 900 Intake, IV Titration 1500 Amount Sodium Chloride 0.9% 1, 1500 000 ml @ 125 mls/hr IV . Q8H [facility]CO A Rx#:[id number] Oral 300 Output: Stool 0 Estimated Blood Loss 15 Other: Voiding Method Toilet - Exam General appearance: The patient is alert, oriented, in no acute distress. Mild jaundice.. HET: Head is normocephalic and atraumatic. Pupils are equal and reactive. Oropharynx is clear without lesions. Mild Sclerae icterus. Neck: Supple without lymphadenopathy. Trachea midline. Heart: S1 S2. Regular rate and rhythm. Lungs: No crackles or wheezes are heard. Abdomen: Soft, nontender, nondistended with bowel sounds. Surgical incisions clean without bleeding or hematoma redness. No peritoneal signs. No palpable organomegaly or masses. Extremities: Normal skin color and turgor. No cyanosis, rash, ulceration, clubbing, or edema. Radial and pedal pulses are 2/4 bilaterally. Neurological: No focal deficits. Strength and sensation are grossly intact. - Labs CBC & Chem 7: 02/27/19 08:50 02/27/19 08:50 Labs: Abnormal Lab Results - Last 24 Hours (Table) 02/26/19 02/26/19 02/27/19 Range/Units 16:19 22:08 06:44 WBC (3.8-10.6) k/uL Plt Count (150-450) k/uL Neutrophils # (1.3-7.7) k/uL Lymphocytes # (1.0-4.8) k/uL Chloride (98-107) mmol/L Glucose (74-99) mg/dL POC Glucose (mg/dL) 127 H 125 H 144 H (75-99) mg/dL Calcium (8.4-10.2) mg/dL Total Bilirubin (0.2-1.3) mg/dL AST (14-36) U/L ALT (9-52) U/L Total Protein (6.3-8.2) g/dL Albumin (3.5-5.0) g/dL 02/27/19 02/27/19 02/27/19 Range/Units 08:50 08:50 11:50 WBC 11.9 H (3.8-10.6) k/uL Plt Count 102 L (150-450) k/uL Neutrophils # 10.7 H (1.3-7.7) k/uL Lymphocytes # 0.5 L (1.0-4.8) k/uL Chloride 109 H (98-107) mmol/L Glucose 166 H (74-99) mg/dL POC Glucose (mg/dL) 138 H (75-99) mg/dL Calcium 7.5 L (8.4-10.2) mg/dL Total Bilirubin 2.3 H (0.2-1.3) mg/dL AST 149 H (14-36) U/L ALT 357 H (9-52) U/L Total Protein 5.2 L (6.3-8.2) g/dL Albumin 3.0 L (3.5-5.0) g/dL Assessment and Plan (1) Elevated liver enzymes Narrative/Plan: Cholangitis. 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 Status post laparoscopic cholecystectomy. Current Visit: Yes Status: Acute Code(s): R74.8 - ABNORMAL LEVELS OF OTHER SERUM ENZYMES SNOMED Code(s): 869929281 (2) Cholelithiasis Current Visit: Yes Status: Acute Code(s): K80.20 - CALCULUS OF GALLBLADDER W/O CHOLECYSTITIS W/O OBSTRUCTION SNOMED Code(s): 937098399 (3) Leukocytosis Current Visit: Yes Status: Acute Code(s): D72.829 - ELEVATED WHITE BLOOD CELL COUNT, UNSPECIFIED SNOMED Code(s): 149881234 (4) Abdominal pain Current Visit: Yes Status: Acute Code(s): R10.9 - UNSPECIFIED ABDOMINAL PAIN SNOMED Code(s): 95067666
--- NOTE | 2019-02-27 16:00 | P.PN ---
Subjective Progress Note Date: 02/27/19 78-year-old mildly obese female one of Dr. 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 Her symptom becomes slightly bit severe associated with nausea and vomiting she experiences the less severe symptoms in the past but never of them that bad. At the time was seen in [facility] her liver enzyme were requested but elevated with a severely abnormal ultrasound consistent with the cholelithiasis gallbladder distended at the time with thickening of the wall. Surprisingly her white blood cell was quite bit elevated with low-grade temperature with above symptoms was diagnosed with acute cholelithiasis, cholecystitis along with ascending cholangitis. Patient was started on Zosyn, fluid resuscitation and admitted to the hospital under Dr. Hernandez service. 02/26: Yesterday, patient underwent ERCP with cholangiogram, sphincterotomy and balloon sweep with Dr. Zheng. Repeat lab work, WBC 13.4, creatinine 0.78. Total bilirubin 3.3, AST 326, ALT 489, alkaline phosphatase 95. Patient has been taken to the OR by Dr. Hernandez for cholecystectomy. 02/27: Patient has been afebrile, heart rate 87, blood pressure 132/81, pulse ox 96% on 2 L nasal cannula. Repeat peak lab work reveals WBC 11.9, AST 149, ALT 357, alkaline phosphatase 115, total bilirubin 2.3. Patient is being prepared for discharge home by general surgery. She is complaining of abdominal distention and abdominal x-rays ordered that showed non-obstructive bowel gas pattern. Possible right lower lobe atelectasis and small effusion. Patient advised to take incentive spirometry home with her. Chest x-ray reveals probable basilar atelectasis and possible associated effusion. Yesterday, patient underwent left scopic cholecystectomy with Dr. Hernandez. Objective - Vital Signs Vital signs: Vital Signs Temp 97.9 F 02/27/19 07:00 Pulse 87 02/27/19 07:00 Resp 17 02/27/19 07:00 BP 132/81 02/27/19 07:00 Pulse Ox 96 02/27/19 07:00 Intake & Output 02/26/19 02/27/19 02/27/19 18:59 06:59 18:59 Intake Total 900 1500 180 Output Total 15 0 Balance 885 1500 180 Intake: IV 900 Intake, IV Titration 1500 Amount Sodium Chloride 0.9% 1, 1500 000 ml @ 125 mls/hr IV . Q8H [facility] Rx#:[id number] Oral 180 Output: Stool 0 Estimated Blood Loss 15 Other: Voiding Method Toilet - Exam Review of Systems CONSTITUTIONAL: Well-developed no acute respiratory distress. EYES: No icterus sclerae, no conjunctivitis. EARS, NOSE, MOUTH, THROAT, and FACE: No sore throat, lymphadenopathy, carotid bruits or deformity. RESPIRATORY: No SOB cough or wheezes. CARDIOVASCULAR: No CP, Palpitation, PND, Orthopnea, or angina. GASTROINTESTINAL: Positive abdominal pain denies nausea and vomiting no diarrhea, no GI bleed mild distended abdomen GENITOURINARY: Negative for Hematuria or UTI, no kidney stones. INTEGUMENT/BREAST: Negative for any muscular injury with mild osteoarthritis.. Positive edema HEMATOLOGIC/LYMPHATIC: Negative for bleed or purpura. MUSCULOSKELTAL: Negative for Myalgia or arthralgia. NEURLOGICAL: No LOC, Sz or syncope, blurred vision dizziness or abnormality.. BEHAVIORAL/PSYCH: Negative. ENDOCRINE: Negative. General Appearance: Alert, cooperative, no distress, appears stated age. Mildly obese Neck HEENT: Supple, no lymphadenopathy, no thyroid enlargement, no carotid bruits. Lungs: Clear to auscultation without crackles or wheezes no rhonchi, no deformity. Chest Wall: Decrease expansion with deep inspiration no tenderness and no deformity was found on exam, no costochondral pain or discomfort. Heart: Regular rate and rhythm, S1, S2 normal, positive S3, soft systolic murmur in the apex. Back: Symmetric, no curvature, ROM normal, no CVA tenderness. Abdomen: Positive ventral hernia, mild distention, generalized mild tenderness.. Extremities: Extremities normal, atraumatic, no cyanosis positive trace edema. Pulses: 2+ and symmetric. Skin: Skin color, texture, tugor normal, no rashes or lesions. Neurologic: Alert oriented x3 cranial nerves II through XII intact, no motor deficit, no abnormal balance or gait. - Labs CBC & Chem 7: 02/27/19 08:50 02/27/19 08:50 Labs: Abnormal Lab Results - Last 24 Hours (Table) 02/26/19 02/26/19 02/26/19 Range/Units 11:16 11:53 16:19 POC Glucose (mg/dL) 121 H 148 H 127 H (75-99) mg/dL 02/26/19 02/27/19 Range/Units 22:08 06:44 POC Glucose (mg/dL) 125 H 144 H (75-99) mg/dL Assessment and Plan Plan: 1. Abdominal pain secondary to cholecystitis and common bile duct stone with ascending cholangitis, SIRS with lactic acidosis. Patient is status post ERCP, status post laparoscopic cholecystectomy. 2. Severe leukocytosis secondary to ascending cholangitis. 3. Hypertension, presented with hypotension secondary to SIRS with lactic acidosis. 4. History of spindle cell cancer, stable. 5. Acute kidney injury. Continue IV fluids, avoid nephrotoxic agents, recheck electrolytes and kidney function. 6. Hypokalemia, replaced. 7. GI prophylaxis. Continue Protonix. 8. DVT prophylaxis. Heparin subcu 9. Diabetes mellitus type 2, diet controlled. 11. Atelectasis. Incentive spirometry. Discharge plan: Return home today. Impression and plan of care have been directed as dictated by the signing physician. Yumiko Alcantara nurse practitioner acting as scribe for signing physician.
== END 2019-02-27 16:04 | disposition home or self-care (01) | DRG 854 ==
LOC: EC 18:30 → 4SSUR 23:17 → OBSVTOIN 02-25 12:58
PROVIDERS: ADMIT Surgery; ATTEND Surgery
PROC: 0F798ZZ Dilation of Common Bile Duct, Via Natural or Artificial Opening Endoscopic (ICD-10-PCS; 2019-02-25 08:25)
PROC: BF101ZZ Fluoroscopy of Bile Ducts using Low Osmolar Contrast (ICD-10-PCS; 2019-02-25 08:25)
PROC: 0FT44ZZ Resection of Gallbladder, Percutaneous Endoscopic Approach (ICD-10-PCS; principal; 2019-02-26 07:30)
DX: A41.9 Sepsis, unspecified organism (principal); K80.62 Calculus of gallbladder and bile duct with acute cholecystitis without obstruction; K83.09 Other cholangitis; N17.9 Acute kidney failure, unspecified; E87.2 Acidosis; J98.11 Atelectasis; I95.9 Hypotension, unspecified; K44.9 Diaphragmatic hernia without obstruction or gangrene; E87.6 Hypokalemia; K21.9 Gastro-esophageal reflux disease without esophagitis; I12.9 Hypertensive chronic kidney disease with stage 1 through stage 4 chronic kidney disease, or unspecified chronic kidney disease; E11.22 Type 2 diabetes mellitus with diabetic chronic kidney disease; E66.9 Obesity, unspecified; E78.5 Hyperlipidemia, unspecified; Z96.1 Presence of intraocular lens; N18.2 Chronic kidney disease, stage 2 (mild); E11.9 Type 2 diabetes mellitus without complications; G47.33 Obstructive sleep apnea (adult) (pediatric); Z85.89 Personal history of malignant neoplasm of other organs and systems; Z68.38 Body mass index [BMI] 38.0-38.9, adult; Z98.42 Cataract extraction status, left eye; Z98.41 Cataract extraction status, right eye; Z82.49 Family history of ischemic heart disease and other diseases of the circulatory system
CPT/HCPCS: 36415; 43262; 43264; 71046; 74019; 74022; 74329; 76705; 80053; 80074; 83036; 83605; 84145; 85025; 85610; 85730; 88304; 93005; 99285

== ENCOUNTER 2024-05-09 22:27 | Observation (INO) | payer MEDICARE, BC ==
[2024-05-09 23:13] LABS: Basophils % (A) 1 %; Eosinophils # (A) 0.2 k/uL (0-0.7); Eosinophils % (A) 3 %; HGB 15.4 gm/dL (11.4-16.0); Hypochromasia Slight; Lymphocytes # (A) 1.2 k/uL (1.0-4.8); Lymphocytes % (A) 16 %; MCH 30.3 pg (25.0-35.0); MCHC 31.5 g/dL (31.0-37.0); MCV 96.2 fL (80.0-100.0); Mean Platelet Volume 9.4; Monocytes # (A) 0.6 k/uL (0-1.0); Monocytes % (A) 7 %; Neutrophils # (A) 5.4 k/uL (1.3-7.7); Neutrophils % (A) 71 %; Platelet Count 185 k/uL (150-450); RBC 5.09 m/uL (3.80-5.40); WBC 7.6 k/uL (3.8-10.6)
[2024-05-09 23:25] LABS: ALT 13 U/L (4-34); AST 19 U/L (14-36); African American GFR (CKD) >90 (>60 ml/min/1.73 sqM); Alkaline Phosphatase 76 U/L (38-126); Anion Gap 2 mmol/L; Blood Urea Nitrogen 15 mg/dL (7-17); Calcium 8.8 mg/dL (8.4-10.2); Carbon Dioxide 35 mmol/L (22-30); Chloride 102 mmol/L (98-107); Glucose 194 mg/dL (74-99); Non-African American GFR(CKD) 82 (>60 ml/min/1.73 sqM); Potassium 3.3 mmol/L (3.5-5.1); Sodium 139 mmol/L (137-145); Total Bilirubin 0.5 mg/dL (0.2-1.3); Total Protein 5.9 g/dL (6.3-8.2)
[2024-05-09 23:33] LABS: NT-Pro-B-Type Natriuretic Pept 183 pg/mL
[2024-05-09] MEDS: ASPIRIN 81 MG PO STA (23:43)
[2024-05-09 23:44] LABS: INR 0.9 (<1.2); Partial Thromboplastin Time 24.5 sec (22.0-30.0); Prothrombin Time 9.7 sec (10.0-12.5)
[2024-05-10] MEDS ORDERED: NITROGLYCERIN SL TABS 0.4 MG TAB SUBLINGUAL PRN (01:59)
--- NOTE | 2024-05-10 02:25 | XR ---
EXAM: XR Chest, 2 Views CLINICAL HISTORY: ITS.REASON XR Reason: difficulty breathing TECHNIQUE: Frontal and lateral views of the chest. COMPARISON: 02/27/2019. FINDINGS: Lungs: A 1 cm calcified granuloma is noted laterally at the left midlung, unchanged. No consolidation. Pleural space: Unremarkable. No pneumothorax. Heart: Heart is normal in size. No cardiomegaly. Mediastinum: Unremarkable. Normal mediastinal contour. Bones/joints: Compression fracture of the T12 vertebral body is noted of indeterminate age. Dextroscoliosis of the thoracic spine. 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 Upper abdomen: Elevation of the right hemidiaphragm. IMPRESSION: 1. Compression fracture of T12 vertebral body of indeterminate age and kyphosis. MRI imaging of the thoracic spine is advised to follow-up as deemed clinically necessary. 2. No consolidative changes or pleural effusions.
--- NOTE | 2024-05-10 07:11 | ED ---
SOB HPI - General Chief Complaint: Shortness of Breath Stated Complaint: Shortness of Breath Time Seen by Provider: 05/09/24 22:39 Source: patient, EMS Mode of arrival: EMS Limitations: no limitations - History of Present Illness Initial Comments: This patient is an 84-year-old woman who developed shortness of breath and diaphoresis approximately 2 hours prior. The patient was persuaded by family to be seen to make sure as it did not represent angina. She was not having any fever or chills, cough, leg pain or swelling. No chest pain. Symptoms have resolved now MD Complaint: shortness of breath -: hour(s) Severity scale (1-10): 0 Consistency: now resolved Improves With: rest Worsens With: nothing Associated Symptoms: diaphoresis Treatments Prior to Arrival: none - Related Data Home Oxygen Therapy: No Home Medications Medication Instructions Recorded Confirmed Baclofen 10 mg PO HS 05/10/24 05/10/24 Montelukast [Singulair] 10 mg PO DAILY 05/10/24 05/10/24 Omeprazole 40 mg PO DAILY 05/10/24 05/10/24 Previous Rx's Medication Instructions Recorded Aspirin 81 mg PO DAILY #30 tab 05/12/24 Losartan-Hctz 50-12.5 mg [Hyzaar 1 each PO DAILY #30 tab 05/12/24 50-12.5] Metoprolol Tartrate [Lopressor] 12.5 mg PO BID #30 tab 05/12/24 Allergies Allergy/AdvReac Type Severity Reaction Status Date / Time No Known Allergies Allergy Verified 05/10/24 10:36 Review of Systems ROS Statement: Those systems with pertinent positive or pertinent negative responses have been documented in the HPI. ROS Other: All systems not noted in ROS Statement are negative. Constitutional: Denies: fever, chills, weakness Respiratory: Reports: dyspnea. Denies: cough, wheezes Cardiovascular: Denies: chest pain, palpitations, edema Gastrointestinal: Denies: abdominal pain, nausea, vomiting, diarrhea Genitourinary: Denies: dysuria, hematuria Musculoskeletal: Denies: back pain Skin: Denies: rash Neurological: Denies: headache, weakness, numbness Psychiatric: Denies: anxiety Past Medical History Past Medical History: Cancer, Diabetes Mellitus, GERD/Reflux, Hypertension Additional Past Medical History / Comment(s): positional vertigo, elevated liver enzymes, ocular migraine, sinus infections, cataracts bilat History of Any Multi-Drug Resistant Organisms: None Reported Additional Past Surgical History / Comment(s): lump removed R leg-spindle cell CA, R eye implant, cataract surgery Past Anesthesia/Blood Transfusion Reactions: No Reported Reaction Past Alcohol Use History: Rare Past Drug Use History: None Reported - Past Family History Mother Family Medical History: CVA/TIA Additional Family Medical History / Comment(s): Macular Degeneration Father Family Medical History: Unable to Obtain General Exam Limitations: no limitations General appearance: alert, in no apparent distress Head exam: Present: atraumatic, normocephalic Eye exam: Present: normal appearance. Absent: scleral icterus, conjunctival injection Neck exam: Present: normal inspection Respiratory exam: Present: normal lung sounds bilaterally. Absent: respiratory distress, wheezes, rales, rhonchi, stridor, accessory muscle use Cardiovascular Exam: Present: regular rate, normal rhythm, normal heart sounds. Absent: systolic murmur, diastolic murmur, rubs, gallop GI/Abdominal exam: Present: soft. Absent: distended, tenderness, guarding, r ebound, rigid, mass Extremities exam: Present: normal inspection, normal capillary refill. Absent: pedal edema, calf tenderness Back exam: Present: normal inspection. Absent: CVA tenderness (R), CVA tenderness (L) Neurological exam: Present: alert Skin exam: Present: warm, dry, intact, normal color. Absent: rash Course Vital Signs 05/09/24 05/10/24 05/10/24 22:33 03:43 06:17 Temperature 97.7 F Pulse Rate 105 H 85 86 Respiratory 18 18 16 Rate Blood Pressure 138/99 106/86 O2 Sat by Pulse 95 94 L 95 Oximetry Medical Decision Making - Medical Decision Making The patient had chest x-ray that I interpreted as negative for acute infiltrate, pneumothorax, congestive heart failure Was pt. sent in by a medical professional or institution (, PA, AUTO TECHNICIAN, urgent care, hospital, or senior care...) When possible be specific @ -[No] Did you speak to anyone other than the patient for history (EMS, parent, family, police, friend...)? What history was obtained from this source @ -[No] Did you review nursing and triage notes (agree or disagree)? Why? @ -[I reviewed and agree with nursing and triage notes] Were old charts reviewed (outside hosp., previous admission, EMS record, old EKG, old radiological studies, urgent care reports/EKG's, senior care records)? Report findings @ -[No old charts were reviewed] Differential Diagnosis (chest pain, altered mental status, abdominal pain women, abdominal pain men, vaginal bleeding, weakness, fever, dyspnea, syncope, headache, dizziness, GI bleed, back pain, seizure, CVA, palpatations, mental health, musculoskeletal)? @ -[Differential Dyspnea: Coronary syndrome, arrhythmia, tamponade, asthma, COPD, pulmonary embolism, pneumonia, pneumothorax, pulmonary effusion, anaphylaxis, diabetic ketoacidosis, flailed chest, pulmonary contusion, diaphragmatic rupture, anemia, neuromuscular, this is not meant to be an all-inclusive list. EKG interpreted by me (3pts min.). @ -[I interpreted as above X-rays interpreted by me (1pt min.). @ -[I interpreted as above CT interpreted by me (1pt min.). @ -[None done] U/S interpreted by me (1pt. min.). @ -[None done] What testing was considered but not performed or refused? (CT, X-rays, U/S, labs)? Why? @ -[None] What meds were considered but not given or refused? Why? @ -[None] Did you discuss the management of the patient with other professionals (professionals i.e. , PA, AUTO TECHNICIAN, lab, RT, psych nurse, social economist, salesperson household appliances, teacher, dog control officer, director of casework services)? Give summary @ -[No] Was smoking cessation discussed for >3mins.? @ -[No] Was critical care preformed (if so, how long)? @ -[No] Were there social determinants of health that impacted care today? How? (Homelessness, low income, unemployed, alcoholism, drug addiction, transportation, low edu. Level, literacy, decrease access to med. care, penitentiary, rehab)? @ -[No] Was there de-escalation of care discussed even if they declined (Discuss DNR or withdrawal of care, Hospice)? DNR status @ -[No] What co-morbidities impacted this encounter? (DM, HTN, Smoking, COPD, CAD, Cancer, CVA, ARF, Chemo, Hep., AIDS, mental health diagnosis, sleep apnea, morbid obesity)? @ -[None] Was patient admitted / discharged? Hospital course, mention meds given and route, prescriptions, significant lab abnormalities, going to OR and other pertinent info. @ -[Patient is an 84-year-old woman here with episode of dyspnea will be admitted to have cardiology evaluation to ensure this does not represent angina. The patient clinically improved at admission Undiagnosed new problem with uncertain prognosis? @ -[No] Drug Therapy requiring intensive monitoring for toxicity (Heparin, Nitro, Insulin, Cardizem)? @ -[No] Were any procedures done? @ -[No] Diagnosis/symptom? @ -[Acute dyspnea Acute, or Chronic, or Acute on Chronic? @ -[Acute Uncomplicated (without systemic symptoms) or Complicated (systemic symptoms)? @ -[Uncomplicated Side effects of treatment? @ -[No] Exacerbation, Progression, or Severe Exacerbation? @ -[No] Poses a threat to life or bodily function? How? (Chest pain, USA, AR, pneumonia, PE, COPD, DKA, ARF, appy, cholecystitis, CVA, Diverticulitis, Homicidal, Suicidal, threat to staff... and all critical care pts) @ -[Yes, requires cardiology evaluation - Lab Data Result diagrams: 05/09/24 22:58 05/11/24 04:29 Lab Results 05/09/24 05/09/24 05/09/24 Range/Units 22:58 22:58 22:58 WBC 7.6 (3.8-10.6) k/uL RBC 5.09 (3.80-5.40) m/uL Hgb 15.4 (11.4-16.0) gm/dL Hct 49.0 H (34.0-46.0) % MCV 96.2 (80.0-100.0) fL MCH 30.3 (25.0-35.0) pg MCHC 31.5 (31.0-37.0) g/dL RDW 13.0 (11.5-15.5) % Plt Count 185 (150-450) k/uL MPV 9.4 Neutrophils % 71 % Lymphocytes % 16 % Monocytes % 7 % Eosinophils % 3 % Basophils % 1 % Neutrophils # 5.4 (1.3-7.7) k/uL Lymphocytes # 1.2 (1.0-4.8) k/uL Monocytes # 0.6 (0-1.0) k/uL Eosinophils # 0.2 (0-0.7) k/uL Basophils # 0.0 (0-0.2) k/uL Hypochromasia Slight PT 9.7 L (10.0-12.5) sec INR 0.9 (<1.2) APTT 24.5 (22.0-30.0) sec Sodium 139 (137-145) mmol/L Potassium 3.3 L (3.5-5.1) mmol/L Chloride 102 (98-107) mmol/L Carbon Dioxide 35 H (22-30) mmol/L Anion Gap 2 mmol/L BUN 15 (7-17) mg/dL Creatinine 0.67 (0.52-1.04) mg/dL Est GFR (CKD-EPI)AfAm >90 (>60 ml/min/1.73 sqM) Est GFR (CKD-EPI)NonAf 82 (>60 ml/min/1.73 sqM) Glucose 194 H (74-99) mg/dL Plasma Lactic Acid Topher (0.7-2.0) mmol/L Calcium 8.8 (8.4-10.2) mg/dL Total Bilirubin 0.5 (0.2-1.3) mg/dL AST 19 (14-36) U/L ALT 13 (4-34) U/L Alkaline Phosphatase 76 (38-126) U/L Troponin I (0.000-0.034) ng/mL NT-Pro-B Natriuret Pep 183 pg/mL Total Protein 5.9 L (6.3-8.2) g/dL Albumin 4.0 (3.5-5.0) g/dL 05/09/24 05/09/24 Range/Units 22:58 22:58 WBC (3.8-10.6) k/uL RBC (3.80-5.40) m/uL Hgb (11.4-16.0) gm/dL Hct (34.0-46.0) % MCV (80.0-100.0) fL MCH (25.0-35.0) pg MCHC (31.0-37.0) g/dL RDW (11.5-15.5) % Plt Count (150-450) k/uL MPV Neutrophils % % Lymphocytes % % Monocytes % % Eosinophils % % Basophils % % Neutrophils # (1.3-7.7) k/uL Lymphocytes # (1.0-4.8) k/uL Monocytes # (0-1.0) k/uL Eosinophils # (0-0.7) k/uL Basophils # (0-0.2) k/uL Hypochromasia PT (10.0-12.5) sec INR (<1.2) APTT (22.0-30.0) sec Sodium (137-145) mmol/L Potassium (3.5-5.1) mmol/L Chloride (98-107) mmol/L Carbon Dioxide (22-30) mmol/L Anion Gap mmol/L BUN (7-17) mg/dL Creatinine (0.52-1.04) mg/dL Est GFR (CKD-EPI)AfAm (>60 ml/min/1.73 sqM) Est GFR (CKD-EPI)NonAf (>60 ml/min/1.73 sqM) Glucose (74-99) mg/dL Plasma Lactic Acid Topher 1.5 (0.7-2.0) mmol/L Calcium (8.4-10.2) mg/dL Total Bilirubin (0.2-1.3) mg/dL AST (14-36) U/L ALT (4-34) U/L Alkaline Phosphatase (38-126) U/L Troponin I <0.012 (0.000-0.034) ng/mL NT-Pro-B Natriuret Pep pg/mL Total Protein (6.3-8.2) g/dL Albumin (3.5-5.0) g/dL - EKG Data -: EKG Interpreted by Ri EKG shows normal: sinus rhythm, axis (Borderline left axis deviation), intervals (Normal), QRS complexes (Normal) Rate: tachycardia ( rate 105 bpm) Disposition Clinical Impression: Dyspnea Disposition: ADMITTED IP TO THIS HOSP Condition: Fair Is patient prescribed a controlled substance at d/c from ED?: No
[2024-05-10] MEDS: LOSARTAN-HCTZ 50-12.5 MG 1 EACH TAB PO SCH (10:37)
--- NOTE | 2024-05-10 12:14 | P.CRDCN ---
History of Present Illness Consult date: 05/10/24 Requesting physician: Guilherme Martinez Reason for Consult (text): chest pain Chief complaint: indigestion, diaphoresis, back pain History of present illness: This is a pleasant 84-year-old female patient who does not follow with cardiology. She has a history of hypertension and diet-controlled diabetes as well as being told in the past she has a hiatal hernia. She apparently had a fall in February and since then has been experiencing back pain. Yesterday she presented to the emergency department after developing significant back pain as well as a sensation of indigestion and diaphoresis. EKG showed no evidence of ischemia with sinus mechanism, troponins have been negative x 3, BNP 183. Chest x-ray did show T12 compression fracture. Patient has been somewhat limited in her activity recently since her fall but denies any exertional symptoms including chest discomfort, shortness of breath or palpitations. She has had no dizziness or lightheadedness. She has had no PND. She does sleep in a somewhat upright position but attributes this to her sinus drainage and denies any difficulty breathing with lying supine. Past Medical History Past Medical History: Cancer, Diabetes Mellitus, GERD/Reflux, Hypertension Additional Past Medical History / Comment(s): positional vertigo, elevated liver enzymes, ocular migraine, sinus infections, cataracts bilat History of Any Multi-Drug Resistant Organisms: None Reported Additional Past Surgical History / Comment(s): lump removed R leg-spindle cell CA, R eye implant, cataract surgery Past Anesthesia/Blood Transfusion Reactions: No Reported Reaction Past Alcohol Use History: Rare Past Drug Use History: None Reported - Past Family History Mother Family Medical History: CVA/TIA Additional Family Medical History / Comment(s): Macular Degeneration Father Family Medical History: Unable to Obtain Medications and Allergies Home Medications Medication Instructions Recorded Confirmed Type Baclofen 10 mg PO HS 05/10/24 05/10/24 History Losartan/Hydrochlorothiazide 1 tab PO DAILY 05/10/24 05/10/24 History [Hyzaar 100-12.5 Tablet] Montelukast [Singulair] 10 mg PO DAILY 05/10/24 05/10/24 History Omeprazole 40 mg PO DAILY 05/10/24 05/10/24 History Allergies Allergy/AdvReac Type Severity Reaction Status Date / Time No Known Allergies Allergy Verified 05/10/24 10:36 Physical Exam Vitals: Vital Signs Temp Pulse Pulse Resp BP BP Pulse Ox 05/10/24 08:21 97.6 F 82 18 125/78 90 L 05/10/24 06:17 86 16 106/86 95 05/10/24 03:43 85 18 94 L 05/09/24 22:33 97.7 F 105 H 18 138/99 95 Intake and Output 05/09/24 05/10/24 05/10/24 22:59 06:59 14:59 Other: Voiding Method Toilet Weight 76.204 kg PHYSICAL EXAMINATION: This is a 84-year-old male in no apparent distress at the time of my examination. VITAL SIGNS: Reviewed. HEENT: Head is atraumatic, normocephalic. Pupils are equal, round. Sclerae anicteric. Conjunctivae are clear. Mucous membranes of the mouth are moist. Neck is supple. There is no elevated jugular venous pressure. No carotid bruit is heard. CHEST EXAMINATION: Clear to auscultation bilaterally. No wheezes rales or rhonchi. Respirations even and nonlabored. HEART EXAMINATION: Heart regular, positive S1 and S2. No S3. No S4. Systolic murmur. ABDOMEN: Soft, nontender. Bowel sounds are heard. No organomegaly noted. EXTREMITIES: 2+ peripheral pulses with no evidence of peripheral edema and no calf tenderness noted. NEUROLOGIC EXAMINATION: Patient is awake, alert and oriented x3. Results 05/09/24 22:58 05/09/24 22:58 Cardiac Enzymes 05/09/24 05/09/24 05/10/24 Range/Units 22:58 22:58 02:45 AST 19 (14-36) U/L Troponin I <0.012 <0.012 (0.000-0.034) ng/mL 05/10/24 Range/Units 05:53 AST (14-36) U/L Troponin I <0.012 (0.000-0.034) ng/mL Coagulation 05/09/24 Range/Units 22:58 PT 9.7 L (10.0-12.5) sec APTT 24.5 (22.0-30.0) sec CBC 05/09/24 Range/Units 22:58 WBC 7.6 (3.8-10.6) k/uL RBC 5.09 (3.80-5.40) m/uL Hgb 15.4 (11.4-16.0) gm/dL Hct 49.0 H (34.0-46.0) % Plt Count 185 (150-450) k/uL Comprehensive Metabolic Panel 05/09/24 Range/Units 22:58 Sodium 139 (137-145) mmol/L Potassium 3.3 L (3.5-5.1) mmol/L Chloride 102 (98-107) mmol/L Carbon Dioxide 35 H (22-30) mmol/L BUN 15 (7-17) mg/dL Creatinine 0.67 (0.52-1.04) mg/dL Glucose 194 H (74-99) mg/dL Calcium 8.8 (8.4-10.2) mg/dL AST 19 (14-36) U/L ALT 13 (4-34) U/L Alkaline Phosphatase 76 (38-126) U/L Total Protein 5.9 L (6.3-8.2) g/dL Albumin 4.0 (3.5-5.0) g/dL Current Medications Generic Name Dose Route Start Last Admin Trade Name Freq PRN Reason Stop Dose Admin Aspirin 325 mg 05/11/24 09:00 Aspirin 325 Mg Tab PO DAILY MARCO A Nitroglycerin 0.4 mg 05/10/24 01:59 Nitroglycerin Sl Tabs 0.4 Mg Tab SUBLINGUAL Q5M PRN Chest Pain Intake and Output 05/09/24 05/10/24 05/10/24 22:59 06:59 14:59 Other: Voiding Method Toilet Weight 76.204 kg 05/09/24 22:58 05/09/24 22:58 Assessment and Plan Assessment: #1 symptoms of back pain, indigestion and diaphoresis, acute coronary event has been ruled out #2 hypertension, controlled #3 diet-controlled diabetes mellitus type 2 #4 T12 compression fracture Plan: From cardiology's perspective obtain a 2D echo with Doppler studies to assess cardiac structure and function. Discussed stress testing with the patient and at this time patient declines. We will resume home dose of Hyzaar and decrease aspirin to 81 mg p.o. daily. We will continue to follow the patient and provide further recommendations accordingly. GUYLINE OPERATOR note has been reviewed, I agree with a documented findings and plan of care. Patient was seen and examined.
[2024-05-10] MEDS: ALPRAZolam 0.25 MG TAB PO PRN (18:27)
--- NOTE | 2024-05-10 21:43 | P.HPIM ---
History of Present Illness This is a pleasant 84 years old female with past medical history of multiple medical problems. Patient presents because she did not feel well, she developed sweating and pain at the back associated with indigestion and some breathing difficulty Patient states her back pain comes and go for about more than a week, its mainly in the lower back about 6/10 in severity, nonradiating, nonspecific. Patient probably got steroid injection in the past. Currently she has no difficulty breathing. She denies chest pain She denies abdominal pain vomiting and diarrhea. No urinary complaint. No headache dizziness and she walks okay. Vital signs stable patient afebrile Potassium low 3.3, rest of CBC, BMP, liver enzymes, urine analysis were unremarkable Troponin x 3 are less than 0.012. proBNP is low EKG showing sinus tachycardia at 105 Chest x-ray is negative for acute process Patient already evaluated by pharmacometrician who recommended echocardiogram, looks the patient is nonadherent to the recommendation for stress test After rounding I got a page from the bedside nurse that patient looks anxious and request something for treatment, Xanax as needed is provided Review of Systems Review of systems CONSTITUTIONAL: No fever, no malaise, no fatigue. HEENT: No recent visual problems or hearing problems. Denied any sore throat. CARDIOVASCULAR: No orthopnea, PND, no palpitations, no syncope. PULMONARY: No shortness of breath, no cough, no hemoptysis. GASTROINTESTINAL: No diarrhea, no nausea, no vomiting, no abdominal pain. Normoactive bowel sounds. NEUROLOGICAL: No headaches, no weakness, no numbness. HEMATOLOGICAL: Denies any bleeding or petechiae. GENITOURINARY: Denies any burning micturition, frequency, or urgency. MUSCULOSKELETAL/RHEUMATOLOGICAL: Denies any joint pain, swelling, or any muscle pain. ENDOCRINE: Denies any polyuria or polydipsia. Past Medical History Past Medical History: Cancer, Diabetes Mellitus, GERD/Reflux, Hypertension Additional Past Medical History / Comment(s): positional vertigo, elevated liver enzymes with abscess, ocular migraine, sinus infections, cataracts bilat, DM - diet controlled, spindle cell cancer of left leg History of Any Multi-Drug Resistant Organisms: None Reported Past Surgical History: Cholecystectomy Additional Past Surgical History / Comment(s): lump removed left leg-spindle cell CA, R eye implant, cataract surgery Past Anesthesia/Blood Transfusion Reactions: No Reported Reaction Past Psychological History: No Psychological Hx Reported Smoking Status: Never smoker Past Alcohol Use History: Rare Past Drug Use History: None Reported - Past Family History Mother Family Medical History: CVA/TIA Additional Family Medical History / Comment(s): Macular Degeneration Father Family Medical History: Unable to Obtain Medications and Allergies Home Medications Medication Instructions Recorded Confirmed Type Losartan/Hydrochlorothiazide 1 tab PO DAILY 05/10/24 05/10/24 History [Hyzaar 100-12.5 Tablet] Montelukast [Singulair] 10 mg PO DAILY 05/10/24 05/10/24 History RX: Baclofen 10 mg PO HS 05/10/24 05/10/24 History RX: Omeprazole 40 mg PO DAILY 05/10/24 05/10/24 History Allergies Allergy/AdvReac Type Severity Reaction Status Date / Time No Known Allergies Allergy Verified 05/10/24 10:36 Physical Exam Vitals: Vital Signs Temp Pulse Pulse Resp BP BP Pulse Ox 05/10/24 08:21 97.6 F 82 18 125/78 90 L 05/10/24 06:17 86 16 106/86 95 05/10/24 03:43 85 18 94 L 05/09/24 22:33 97.7 F 105 H 18 138/99 95 Intake and Output 05/09/24 05/10/24 05/10/24 22:59 06:59 14:59 Other: Voiding Method Toilet Weight 76.204 kg 76.204 kg GENERAL: The patient is alert and oriented x3, not in any acute distress. Well developed, well nourished. HEENT: Pupils are round and equally reacting to light. EOMI. No scleral icterus. No conjunctival pallor. Normocephalic, atraumatic. No pharyngeal erythema. No thyromegaly. CARDIOVASCULAR: S1 and S2 present. No murmurs, rubs, or gallops. PULMONARY: Chest is clear to auscultation, no wheezing , no crackles. ABDOMEN: Soft, nontender, nondistended, normoactive bowel sounds. No palpable organomegaly. MUSCULOSKELETAL: No joint swelling or deformity. EXTREMITIES: No cyanosis, clubbing, or pedal edema. NEUROLOGICAL: Gross neurological examination did not reveal any focal deficits. SKIN: No rashes. no petechiae. Results CBC & Chem 7: 05/09/24 22:58 05/09/24 22:58 Labs: Abnormal Lab Results - Last 24 Hours (Table) 05/09/24 05/09/24 05/09/24 Range/Units 22:58 22:58 22:58 Hct 49.0 H (34.0-46.0) % PT 9.7 L (10.0-12.5) sec Potassium 3.3 L (3.5-5.1) mmol/L Carbon Dioxide 35 H (22-30) mmol/L Glucose 194 H (74-99) mg/dL Total Protein 5.9 L (6.3-8.2) g/dL Thrombosis Risk Factor Assmnt - Choose All That Apply Any of the Below Risk Factors Present?: Yes Each Factor Represents 1 point: Obesity (BMI >25) Each Risk Factor Represents 3 Points: Age 75 years or older Thrombosis Risk Factor Assessment Total Risk Factor Score: 4 Thrombosis Risk Factor Assessment Level: Moderate Risk Assessment and Plan Assessment: Transient period of sweating, back pain, indigestion and shortness of breath which is resolved now. Evaluated by pharmacometrician. Her symptoms could be related to anxiety Back pain, comes and go for more than a week with no radiculopathy Acute anxiety Diabetes mellitus Hypertension Spindle cell cancer of the left leg ded Plan: Follow-up echocardiogram Cardiology team consult Continue with aspirin Monitor potassium and magnesium Start the patient on BuSpar. Continue with Xanax as needed but try to limit and discontinue upon discharge, i.e. for emergency treatment only Labs and medication were reviewed.. Continue same treatment. Continue with symptomatic treatment. Resume home medication. Monitor labs and vitals. DVT and GI prophylaxis. Further recommendations as per clinical course of the patient DVT prophylaxis: Subcutaneous heparin GI Prophylaxis: Pepcid PT/OT: Pending Prognosis is guar
[2024-05-10] MEDS: BACLOFEN 10 MG TAB PO SCH (22:22)
[2024-05-10] MEDS: busPIRone HCl 10 MG TAB PO SCH (22:23)
[2024-05-10] MEDS: FAMOTIDINE 20 MG/2 ML VIAL IV SCH (22:23)
[2024-05-10] MEDS: POTASSIUM CHLORIDE ER 20 MEQ TAB.ER PO STA (22:23)
[2024-05-11] MEDS ORDERED: ASPIRIN 325 MG TAB PO SCH (09:00)
[2024-05-11] MEDS: MONTELUKAST 10 MG TAB PO SCH (09:02)
[2024-05-11] MEDS: ASPIRIN 81 MG PO SCH (09:02)
[2024-05-11] MEDS: HEPARIN SODIUM,PORCINE 5,000 UNIT/ML 1 ML VIAL SQ SCH (09:09)
[2024-05-11 09:33] LABS: Chol/HDL Ratio 2.41 Ratio; LDL Cholesterol,Calculated 57.1 mg/dL (0.0-131.0); Magnesium 1.7 mg/dL (1.5-2.4); Potassium 3.3 mmol/L (3.5-5.5); VLDL Calculation 14.16 mg/dL (5.00-40.00)
--- NOTE | 2024-05-11 10:44 | P.PN ---
Subjective Progress Note Date: 05/11/24 Reason for Consult (text): chest pain Chief complaint: indigestion, diaphoresis, back pain History of present illness: This is a pleasant 84-year-old female patient who does not follow with cardiology. She has a history of hypertension and diet-controlled diabetes as well as being told in the past she has a hiatal hernia. She apparently had a fall in February and since then has been experiencing back pain. Yesterday she presented to the emergency department after developing significant back pain as well as a sensation of indigestion and diaphoresis. EKG showed no evidence of ischemia with sinus mechanism, troponins have been negative x 3, BNP 183. Chest x-ray did show T12 compression fracture. Patient has been somewhat limited in her activity recently since her fall but denies any exertional symptoms including chest discomfort, shortness of breath or palpitations. She has had no dizziness or lightheadedness. She has had no PND. She does sleep in a somewhat upright position but attributes this to her sinus drainage and denies any difficulty breathing with lying supine. 05/11 Patient is seen today in follow-up. Echocardiogram is pending. Yesterday patient declined stress testing and again today this was discussed and patient again declines. She does not feel that her symptoms are related to her heart. She is agreeable to discuss possible cardiac cath if echocardiogram is abnormal. No chest pain at this time. Blood pressure 125/68, heart rate 94, pulse ox 93% on 1 L nasal cannula. Triglycerides 70, cholesterol 122, LDL 57, HDL 50. PHYSICAL EXAMINATION: This is a 84-year-old male in no apparent distress at the time of my examination. VITAL SIGNS: Reviewed. HEENT: Head is atraumatic, normocephalic. Pupils are equal, round. Sclerae anicteric. CHEST EXAMINATION: Clear to auscultation bilaterally. No wheezes rales or rhonchi. Respirations even and nonlabored. HEART EXAMINATION: Heart regular, positive S1 and S2. No S3. No S4. Systolic murmur. ABDOMEN: Soft, nontender. Bowel sounds are heard. No organomegaly noted. EXTREMITIES: 2+ peripheral pulses with no evidence of peripheral edema and no calf tenderness noted. Assessment: #1 symptoms of back pain, indigestion and diaphoresis, acute coronary event has been ruled out #2 hypertension, controlled #3 diet-controlled diabetes mellitus type 2 #4 T12 compression fracture Plan: Continue current cardiac medications: Aspirin 81 mg daily, Hyzaar 50-12.5 mg 2 tablets daily Obtain 2D echo with Doppler studies to assess cardiac structure and function. If echocardiogram is abnormal, we will discuss the results with the patient and discuss workup options. If echocardiogram is within normal limits, patient is cleared for discharge from cardiology and may follow-up in the office with Dr. Herron in 2 weeks. Nurse practitioner note has been reviewed, I agree with documented findings and plan of care. Patient was seen and examined. Objective - Vital Signs Vital signs: Vital Signs Temp 97.8 F 05/11/24 07:00 Pulse 94 05/11/24 07:00 Resp 20 05/11/24 07:00 BP 125/68 05/11/24 07:00 Pulse Ox 93 L 05/11/24 07:00 FiO2 Intake & Output 05/10/24 05/11/24 05/11/24 18:59 06:59 18:59 Intake Total 236 Balance 236 Weight 76.204 kg Intake: Oral 236 Other: Voiding Method Toilet Toilet # Voids 2 2 - Labs CBC & Chem 7: 05/09/24 22:58 05/11/24 04:29
--- NOTE | 2024-05-11 12:08 | P.CNOR ---
History of Present Illness - [facility] Consult date: 05/11/24 Requesting physician: Clayton E Sheet Consult reason: other (back pain and vertebral fracture) History of present illness: Patient is an 84-year-old female who presented to the hospital due to shortness of breath and diaphoresis yesterday. Patient does not regularly follow with cardiology. She does have a history of hypertension and diabetes. Orthopedics was consulted due to vertebral compression fracture at T12 found on chest x-ray. Patient was seen at bedside this morning sitting up in chair. She mentions over the past few months she has had increasing back pain and she did states she had a fall in February. Since then she says she feels like she walks more hunched over and is unable to walk for long peers of time before having to sit down due to the back pain. Patient denies any other recent falls. Patient says the pain is somewhat relieved when she bends forward and rest. Patient says she normally ambulates independently without the use of a walker or cane. Patient denies any radiation of pain down the legs. Patient mentions she does have some left-sided flank pain from the fall. Patient denies any previous orthopedic spine surgery. Patient denies any saddle anesthesia. Patient denies any bowel or bladder issues. Patient denies any other issues at this time. Past Medical History Past Medical History: Cancer, Diabetes Mellitus, GERD/Reflux, Hypertension Additional Past Medical History / Comment(s): positional vertigo, elevated liver enzymes with abscess, ocular migraine, sinus infections, cataracts bilat, DM - diet controlled, spindle cell cancer of left leg History of Any Multi-Drug Resistant Organisms: None Reported Past Surgical History: Cholecystectomy Additional Past Surgical History / Comment(s): lump removed left leg-spindle cell CA, R eye implant, cataract surgery Past Anesthesia/Blood Transfusion Reactions: No Reported Reaction Past Psychological History: No Psychological Hx Reported Smoking Status: Never smoker Past Alcohol Use History: Rare Past Drug Use History: None Reported - Past Family History Mother Family Medical History: CVA/TIA Additional Family Medical History / Comment(s): Macular Degeneration Father Family Medical History: Unable to Obtain Medications and Allergies Home Medications Medication Instructions Recorded Confirmed Type Baclofen 10 mg PO HS 05/10/24 05/10/24 History Losartan/Hydrochlorothiazide 1 tab PO DAILY 05/10/24 05/10/24 History [Hyzaar 100-12.5 Tablet] Montelukast [Singulair] 10 mg PO DAILY 05/10/24 05/10/24 History Omeprazole 40 mg PO DAILY 05/10/24 05/10/24 History Allergies Allergy/AdvReac Type Severity Reaction Status Date / Time No Known Allergies Allergy Verified 05/10/24 10:36 Physical Examination Inspection: Negative for any open fractures, significant erythema/ecchymosis/ul cers. Positive for scoliosis Sensation: Equal, symmetric, bilaterally intact throughout the upper and lower extremities on exam. Palpation: Nontender to palpation throughout cervical, thoracic, lumbar spine on exam. Range of motion: Patient has good range of motion in bilateral lower extremities on exam. Motor: 4/5 in all major motor groups in bilateral lower extremities on exam Neurovascular: Radial pulse intact, 2+ bilaterally. Cap refill under 3 seconds in digits of upper extremities. Special test: Negative clonus bilaterally. Negative Aminah bilaterally. Negative Homans bilaterally. Results - Labs Labs: Abnormal Lab Results - Last 24 Hours (Table) 05/11/24 Range/Units 04:29 Potassium 3.3 L (3.5-5.5) mmol/L H & H 05/09/24 Range/Units 22:58 Hgb 15.4 (11.4-16.0) gm/dL Hct 49.0 H (34.0-46.0) % Coagulation 05/09/24 Range/Units 22:58 INR 0.9 (<1.2) Result Diagrams: 05/09/24 22:58 05/11/24 04:29 - Diagnostic results Comments: Imaging reviewed from chest x-ray does reveal vertebral compression fracture at T12. Assessment and Plan Assessment: 1. T12 vertebral compression fracture; history of fall Plan: 1. T12 vertebral compression fracture; history of fall -chest x-ray does reveal T12 vertebral compression fracture. We have ordered CT scan of thoracic spine for further evaluation. I will discuss the findings of the imaging and exam with my attending, Dr. Bella before proceeding with any potential intervention. At this time we are recommending conservative measures with the use of a TLSO brace and PT/OT. Pain medication as needed. Patient may weight- bear as tolerated with walker and assistance as needed. We will await CT scan thoracic spine before any further possible intervention. 2. Appreciate medical management 3. Pain management -baclofen 4. DVT prophylaxis -aspirin; heparin 5. GI prophylaxis -Pepcid 6. PT/OT -TLSO brace on while up and about and weightbearing as tolerated with walker and assistance as needed 7. Encourage incentive spirometer use 8. Appreciate consult Time with Patient: Less than 30
--- NOTE | 2024-05-11 14:05 | CT ---
EXAMINATION TYPE: CT thoracic spine wo con CT DLP: 1230 mGycm, Automated exposure control for dose reduction was used. DATE OF EXAM: 05/11/2024 1:22 PM COMPARISON: Chest radiograph 05/09/2024. CLINICAL INDICATION:Female, 84 years old with history of pain; PHH, upper back pain, history of fall in February. TECHNIQUE: Axial images of the thoracic spine were obtained without contrast. Coronal and sagittal re formats were performed. FINDINGS: Healing nondisplaced posterior left 10th through 12th rib fractures with callus formation. Anterior wedge compression fracture of the T11 vertebral body with approximately 50% height loss and no retropulsion. Anterior wedge compression fracture of the L1 vertebral body with approximately 40% height loss and no retropulsion. No spondylolisthesis. Mild kyphotic appearance of the thoracic spine . Multilevel degenerative disc disease with disc space narrowing, endplate sclerosis, vacuum disc disea se, and anterior osteophytosis. No significant neural foraminal or central canal stenosis within the limitations of noncontrast CT. IMPRESSION: 1. Healing nondisplaced posterior left 10th through 12th rib fractures with callus formation. 2. Age-indeterminate anterior wedge compression fractures of the T11 and L1 vertebral bodies as desc ribed above. Consider further evaluation with MRI to determine acuity. [facility], , 05/11/2024 2:02 PM
[2024-05-11] MEDS: POTASSIUM CHLORIDE ER 20 MEQ TAB.ER PO STA (14:20)
[2024-05-11] MEDS: MAGNESIUM SULFATE-D5W PMX 1 GM in DEXTROSE/WATER 1 100ML.BAG IVPB SCH (14:20)
--- NOTE | 2024-05-11 17:43 | CA ---
Transthoracic Echo Report Name: Stephanie Alvarez Age: 84 Gender: F : 1940 Exam Date: 05/11/2024 11:05 Exam Location: [facility] Ht (in): 59 Wt (lb): 168 Ordering Physician: Agnieszka Herron MD ([id number]) Attending/Referring Phys: Scooter Mechanic Stephanie Harding RDCS Procedure CPT: Indications: dyspnea Cardiac Hx: Technical Quality: Fair Contrast 1: Total Dose (mL): Contrast 2: Total Dose (mL): MEASUREMENTS (Male / Female) Normal Values 2D ECHO LV Diastolic Diameter PLAX 5.0 cm 4.2 - 5.9 / 3.9 - 5.3 cm LV Systolic Diameter PLAX 3.9 cm IVS Diastolic Thickness 1.0 cm 0.6 - 1.0 / 0.6 - 0.9 cm LVPW Diastolic Thickness 1.1 cm 0.6 - 1.0 / 0.6 - 0.9 cm LV Relative Wall Thickness 0.4 RV Internal Dim ED PLAX 3.7 cm LA Systolic Diameter LX 4.1 cm 3.0 - 4.0 / 2.7 - 3.8 cm LV Diastolic Volume MOD 4C 85.4 cm??? LV Systolic Volume MOD 4C 47.3 cm??? LV Ejection Fraction MOD 4C 44.6 % LV Cardiac Index MOD 4C 1678.0 cm???/min???m??? LV Diastolic Length 4C 7.8 cm LV Systolic Length 4C 6.4 cm LV Diastolic Volume MOD 2C 67.1 cm??? LV Systolic Volume MOD 2C 37.1 cm??? LV Ejection Fraction MOD 2C 44.7 % LV Cardiac Index MOD 2C 1321.2 cm???/min???m??? LV Diastolic Length 2C 7.3 cm LV Systolic Length 2C 6.6 cm LA Volume 36.7 cm??? 18 - 58 / 22 - 52 cm??? LA Volume Index 20.2 cm???/m??? 16 - 28 cm???/m??? M-MODE Aortic Root Diameter MM 3.2 cm AV Cusp Separation MM 1.4 cm DOPPLER AV Peak Velocity 152.9 cm/s AV Peak Gradient 9.4 mmHg AI Peak Velocity 384.7 cm/s AI Peak Gradient 59.2 mmHg AI Pressure Half Time 828.6 ms MV Area PHT 3.4 cm??? Mitral E Point Velocity 65.9 cm/s Mitral A Point Velocity 90.7 cm/s Mitral E to A Ratio 0.7 MV Deceleration Time 222.8 ms TR Peak Velocity 302.7 cm/s TR Peak Gradient 36.6 mmHg Right Ventricular Systolic Press 41.6 mmHg FINDINGS Left Ventricle Left ventricular ejection fraction is estimated at 45-50 %. Left ventricular cavity size normal. Mildly increased septal wall thickness. Mildly increased posterior wall thickness. Right Ventricle Mild right ventricular dilatation. Mild pulmonary hypertension. Right Atrium Normal right atrial size. No right atrial thrombus or mass seen. Left Atrium Mildly increased left atrial diameter. No left atrial thrombus or mass present. Mitral Valve Structurally normal mitral valve. No mitral stenosis. No evidence for mitral valve prolapse. Trace mitral regurgitation. Aortic Valve Trileaflet aortic valve. No aortic stenosis. Mild aortic regurgitation. Tricuspid Valve Structurally normal tricuspid valve. Mild tricuspid regurgitation. Pulmonic Valve Structurally normal pulmonic valve. No pulmonic regurgitation. Pericardium No pericardial or pleural effusion. Aorta Normal size aortic root and proximal ascending aorta. CONCLUSIONS Mild LV systolic dysfunction Mild pulmonary hypertension Mild aortic regurgitation Previewed by: Dr. Baldemar Tucker MD (Electronically Signed) Final Date: 11 May 2024 17:42
[2024-05-12 08:12] VITALS: BP 111/69; PULSE 80; RESP 16; TEMP 98
[2024-05-12] MEDS: METOPROLOL TARTRATE 12.5 MG TAB PO SCH (09:00)
[2024-05-12] MEDS: FAMOTIDINE 20 MG/2 ML VIAL IV SCH (09:03)
--- NOTE | 2024-05-12 10:30 | P.PN ---
Subjective Progress Note Date: 05/12/24 Reason for Consult (text): chest pain Chief complaint: indigestion, diaphoresis, back pain History of present illness: This is a pleasant 84-year-old female patient who does not follow with cardiology. She has a history of hypertension and diet-controlled diabetes as well as being told in the past she has a hiatal hernia. She apparently had a fall in February and since then has been experiencing back pain. Yesterday she presented to the emergency department after developing significant back pain as well as a sensation of indigestion and diaphoresis. EKG showed no evidence of ischemia with sinus mechanism, troponins have been negative x 3, BNP 183. Chest x-ray did show T12 compression fracture. Patient has been somewhat limited in her activity recently since her fall but denies any exertional symptoms including chest discomfort, shortness of breath or palpitations. She has had no dizziness or lightheadedness. She has had no PND. She does sleep in a somewhat upright position but attributes this to her sinus drainage and denies any difficulty breathing with lying supine. 05/11 Patient is seen today in follow-up. Echocardiogram is pending. Yesterday patient declined stress testing and again today this was discussed and patient again declines. She does not feel that her symptoms are related to her heart. She is agreeable to discuss possible cardiac cath if echocardiogram is abnormal. No chest pain at this time. Blood pressure 125/68, heart rate 94, pulse ox 93% on 1 L nasal cannula. Triglycerides 70, cholesterol 122, LDL 57, HDL 50. 05/12 Echocardiogram reveals mild LV systolic dysfunction with EF of 45 to 50%, mild pulmonary hypertension, mild aortic regurgitation. Results of the echocardiog mariella reviewed with the patient again recommended patient undergo stress testing which she declined. She is willing to follow-up in the office and is requesting to follow-up with Dr. Tucker. Blood pressure 111/69, heart rate 80, pulse ox 96% on 2 L nasal cannula. PHYSICAL EXAMINATION: This is a 84-year-old male in no apparent distress at the time of my examination. VITAL SIGNS: Reviewed. HEENT: Head is atraumatic, normocephalic. Pupils are equal, round. Sclerae anicteric. CHEST EXAMINATION: Clear to auscultation bilaterally. No wheezes rales or rhonchi. Respirations even and nonlabored. HEART EXAMINATION: Heart regular, positive S1 and S2. No S3. No S4. Systolic murmur. ABDOMEN: Soft, nontender. Bowel sounds are heard. No organomegaly noted. EXTREMITIES: 2+ peripheral pulses with no evidence of peripheral edema and no calf tenderness noted. Assessment: #1 symptoms of back pain, indigestion and diaphoresis, acute coronary event has been ruled out #2 hypertension, controlled #3 diet-controlled diabetes mellitus type 2 #4 T12 compression fracture #5 mildly impaired EF. Plan: Continue current cardiac medications: Aspirin 81 mg daily, Hyzaar 50-12.5 mg 2 tablets daily Add Lopressor 12.5 mg twice daily Patient has declined further workup at this time but willing to follow-up in the office. Patient is cleared from cardiology for discharge and may follow-up in the office with Dr. Elliot Tucker in 2 weeks. Nurse practitioner note has been reviewed, I agree with documented findings and plan of care. Patient was seen and examined. Objective - Vital Signs Vital signs: Vital Signs Temp 98.1 F 05/12/24 01:19 Pulse 82 05/12/24 01:19 Resp 18 05/12/24 01:19 BP 120/66 05/12/24 01:19 Pulse Ox 95 05/12/24 01:19 FiO2 Intake & Output 05/11/24 05/12/24 05/12/24 18:59 06:59 18:59 Intake Total 240 480 Balance 240 480 Intake: Oral 240 480 Other: Voiding Method Toilet Toilet # Voids 1 3 - Labs CBC & Chem 7: 05/09/24 22:58 05/11/24 04:29 Labs: Abnormal Lab Results - Last 24 Hours (Table) 05/11/24 Range/Units 04:29 Potassium 3.3 L (3.5-5.5) mmol/L
--- NOTE | 2024-05-12 13:42 | P.DS ---
Providers Date of admission: 05/10/24 01:59 Attending physician: Guilherme Martinez MD Consults: 05/10/24 01:59 Consult Physician Routine Consulting Provider: Mir Mcneal Consult Reason/Comments: chest pain Do you want consulting provider notified?: Yes 05/11/24 06:08 Consult Physician Routine Consulting Provider: Ayush Bella Consult Reason/Comments: back pain and vertebral fracture Do you want consulting provider notified?: Yes Primary care physician[facility] Course: Final Diagnosis Transient period of sweating, back pain, indigestion and shortness of breath which is resolved now. Evaluated by gas line installer supervisor. 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 If she does not get it today while inpatient she does not want to wait and wants to discharge home without the brace and follow-up in the office for this. She is also refusing cardiac stress testing while inpatient and wants to follow-up with her gas line installer supervisor in the office in 1 to 2 weeks. Patient also declined to have her blood work repeated to check her potassium level most recently was 3.3 which she did receive oral supplementation for this. Will get blood work to repeat her levels in the office in 2 to 3 days. Hospital Course This is a pleasant 84 years old female with past medical history of multiple medical problems. Patient presents because she did not feel well, she developed sweating and pain at the back associated with indigestion and some breathing difficulty Patient states her back pain comes and go for about more than a week, its mainly in the lower back about 6/10 in severity, nonradiating, nonspecific. Patient probably got steroid injection in the past. Currently she has no difficulty breathing. She denies chest pain. She denies abdominal pain vomiting and diarrhea. No urinary complaint. No headache dizziness and she walks okay. Patient fell back in February and at that time had a known T12 compression fracture. Her blood work on admission shows negative troponin, potassium of 3.3. Patient was admitted to the hospital with orthopedic and cardiology consultation. Patient had a thoracic spine CT done which reveals a healing nondisplaced posterior left 10th through 12th rib fractures with callus formation. Additionally there is an age-indeterminate anterior wedge compression fractures of the T11 and L1 vertebral bodies. Orthopedics has recommended conservative management and recommending a TLSO brace on discharge. Cardiology has ruled out an acute coronary syndrome however unable to rule out any type of ischemia patient's echocardiogram reveals an EF of 45 to 50% with mild pulmonary hypertension and mild aortic regurgitation. Patient would like to follow-up with cardiology in the office and is declined any stress testing or cardiac catheterization which were offered by cardiology. She is not having any chest pain or shortness of breath at this time. She does report that she feels unable to take a deep breath secondary to the compression fractures and has been wearing oxygen while in the hospital we did do a home oxygen test today revealing an oxygen saturation of 88% on room air with activity. Patient again states that she is declining any home oxygen on discharge. We will give her information to follow-up with a pulmonary doctor. Once patient receives the TLSO brace she is able to be discharged home today to follow-up with her family doctor and above-mentioned recommendations. Please see medication reconciliation for a list of current medications. Thank you for allowing us to participate in the care of this patient. The impression and plan of care has been dictated by Bettina Campbell, Nurse Practitioner as directed. Dr. Jessica MD I have performed a history and physical examination and medical decision making of this patient, discussed the same with the dictator, and agree with the dictators assessment and plan as written, documented as a scribe. Based on total visit time, I have performed more than 50% of this visit. Patient Condition at Discharge: Fair Plan - Discharge Summary Discharge Rx Participant: No New Discharge Prescriptions: New Aspirin 81 mg PO DAILY #30 tab Losartan-Hctz 50-12.5 mg [Hyzaar 50-12.5] 1 each PO DAILY #30 tab Metoprolol Tartrate [Lopressor] 12.5 mg PO BID #30 tab Continue Omeprazole 40 mg PO DAILY Baclofen 10 mg PO HS Montelukast [Singulair] 10 mg PO DAILY Discontinued Losartan/Hydrochlorothiazide [Hyzaar 100-12.5 Tablet] 1 tab PO DAILY Discharge Medication List Baclofen 10 mg PO HS 05/10/24 [History] Montelukast [Singulair] 10 mg PO DAILY 05/10/24 [History] Omeprazole 40 mg PO DAILY 05/10/24 [History] Aspirin 81 mg PO DAILY #30 tab 05/12/24 [Rx] Losartan-Hctz 50-12.5 mg [Hyzaar 50-12.5] 1 each PO DAILY #30 tab 05/12/24 [Rx] Metoprolol Tartrate [Lopressor] 12.5 mg PO BID #30 tab 05/12/24 [Rx] Follow up Appointment(s)/Referral(s): Baldemar Tucker MD [STAFF PHYSICIAN] - 2 Weeks Akshat Shabazz MD [Primary Care Provider] - 1 Week Jackson Barrios [NON-STAFF] - 1-2 Days Davin Sandhu MD [STAFF PHYSICIAN] - 1 Week (Payroll Accounting Specialist ) Ambulatory/Diagnostic Orders: Basic Metabolic Panel [LAB.AMB] Time Frame: 3 Days, Location: None Selected Magnesium [LAB.AMB] Location: None Selected Activity/Diet/Wound Care/Special Instructions: Awaiting TLSO brace Discharge Disposition: HOME SELF-CARE
[2024-05-13] MEDS ORDERED: LOSARTAN-HCTZ 50-12.5 MG 1 EACH TAB PO SCH (09:00)
== END 2024-05-12 14:57 | disposition left against medical advice (07) ==
LOC: EC 22:27 → 6NMEDSUR 05-10 01:59
PROVIDERS: ADMIT Internal Medicine; ATTEND Internal Medicine
DX: M48.54XA Collapsed vertebra, not elsewhere classified, thoracic region, initial encounter for fracture (principal); K30 Functional dyspepsia; R61 Generalized hyperhidrosis; M54.9 Dorsalgia, unspecified; R06.02 Shortness of breath; C76.52 Malignant neoplasm of left lower limb; E11.9 Type 2 diabetes mellitus without complications; K21.9 Gastro-esophageal reflux disease without esophagitis; I10 Essential (primary) hypertension; F41.9 Anxiety disorder, unspecified; Z91.81 History of falling; Z79.899 Other long term (current) drug therapy; Z53.29 Procedure and treatment not carried out because of patient's decision for other reasons
CPT/HCPCS: 96376; 96365; 96372 ×2; 96375; 99285; 36415; 94760; 93005 ×2; 93306; 83880; 80061; 80053; 83605; 83735; 84132; 84484 ×2; 85025; 85610; 85730; 71046; 72128; G0378 ×3; J1644 ×2; J3490 ×2; J3475